=== PATIENT | female | born 1960 | race Caucasian/White ===

== ENCOUNTER → 2018-01-02 | Outpatient (CLI) | payer OTHER ==
[~2018-01-02] MED LIST: OXYC80TA16 PO; PRMUNK
--- NOTE | 2018-01-02 11:45 | Discharge Instructions ---
Discharge Instructions Procedure Procedure Date: Jan 02, 2018. Reason for visit: Right Masses/Core Vs Cyst. Discharge Discharge Date: Jan 02, 2018. Discharge Diagnosis: status post breast biopsies Instructions Activity Recommendations: Additional Limitations (see below) Return to School/Work: no limitations Recommended Home Diet: No Limitations Provider Instructions: ACTIVITY RECOMMENDATIONS: * No lifting, pushing, pulling or exercising the affected side for three days. RETURN TO SCHOOL/WORK: * You may return to work/school after the procedure, but do not perform any strenuous activities for 24 to 48 hours. MEDICATIONS: * Tylenol (two 325 mg) every four to six hours if needed for mild pain (if not allergic to Tylenol). DIET: * Resume previous diet. SPECIAL CARE INSTRUCTIONS: * Keep biopsy site dry for 24 hours. May shower after 24 hours, but do not soak (bathe) incision. * May remove Tegaderm (plastic patch) tomorrow AFTER showering. * Leave the steri-strips on for one week. Allow the steri-strips to fall off by themselves. If not off after one week, you may remove them. You may place a Bandaid crosswise over the strips, if desired. * Apply ice 10 minutes on and 10 minutes off as needed. * Wear a bra at bedtime to sleep more comfortably for 2-3 days. * Your referring physician should have the results after approximately 5 to 7 business days. * Call for unusual bleeding, fever, drainage, etc or if you have any questions call during normal business hours or after hours call Dr Benitez, . FOLLOW UP VISIT: Follow-up with Referring Physician as scheduled. Allergies Coded Allergies: No Known Allergies (Unverified Allergy, Mild, 12/18/05) Tammie León Recommendations: Call your doctor if: * Temperature above 101 degrees * Pain not relieved by pain medicine ordered * There is increased drainage or redness from any incision * You have any unanswered questions or concerns. Your Doctors Instructions noted above were prepared by provider Rosita Benitez. Patient Signature Section: Patient Instructions Signature Page Salina Cabrera Patient (or Guardian) Signature/Date: I have read and understand the instructions given to me by my caregivers. Caregiver/RN/Doctor Signature/Date: The above-named patient and/or guardian has received patient instructions on this date. + Original Patient Signature Page (only) stays with chart. Please make copy for patient.
--- NOTE | 2018-01-03 07:54 | MAMMOGRAPHY REPORT ---
ULTRASOUND GUIDED BIOPSY RIGHT BREAST: 01/02/2018 CLINICAL HISTORY: The patient presents from outside institution for biopsy of a palpable right 8:00 b reast mass. Preprocedural ultrasound was performed, which shows a lobulated irregular hypoechoic solid mass at th e site of the palpable lump in the right breast at approximately 8:00, 3 cm from the nipple, measurin g 1.7 x 1.0 x 1.4 cm. Linear hypoechoic abnormal tissue is seen extending approximately 1.3 cm from the mass towards the nipple. Additionally, multiple hypoechoic solid masses are also seen in the rig ht 8:00 breast, including a 6 x 4 x 8 mm mass in the right breast at 8:00, 7 cm from the nipple, a 6 x 5 mm hypoechoic mass at approximately 6-7 cm from the nipple, and a hypoechoic solid mass measuring 4 x 6 mm in the right breast at approximately 8:00, 4 cm from the nipple. The palpable dominant mas s is highly suspicious for malignancy and biopsy is recommended. Also recommend biopsy of 1 of the o ther hypoechoic solid masses, specifically the mass furthest from the dominant mass at approximately 7 cm from the nipple. Targeted ultrasound was also performed of the right axilla, which shows multip le mildly prominent right axillary lymph nodes, many of which do not have normal fatty deepa and the c ortices are thickened. Therefore, recommend biopsy of 1 of the axillary lymph nodes. PATIENT CONSENT: The procedure, risks and benefits were discussed with the patient and informed writt en consent was obtained. A timeout was performed immediately prior to the procedure. PROCEDURE DESCRIPTION: With ultrasound guidance, aseptic technique, and lidocaine as the local anesth etic (1% lidocaine to anesthetize the skin and 1% lidocaine with epinephrine to anesthetize the deepe r tissues), the dominant mass in the right 8:00 breast, 3 cm from the nipple (mass "A") sampled 4 katiana es with a 14-gauge Achieve biopsy needle. Immediately thereafter, with ultrasound guidance, aseptic technique, and lidocaine as the local anesthetic, a metallic localizer clip was placed centrally in the mass. Direct pressure was applied to the site immediately post procedure and hemostasis was achi eved. Postprocedure unilateral mammograms were performed to confirm placement of the clip in the exp ected location of the breast mass. The patient tolerated the procedure without complication. She wa s given wound care instructions. The specimens were sent to pathology for analysis. IMPRESSION: ULTRASOUND GUIDED BIOPSY 1. Preprocedural ultrasound demonstrates a dominant 1.7 cm mass corresponding with the palpable lump in the right breast at 8:00. Abnormal hypoechoic tissue is seen extending 1.3 cm from the mass towa rds the nipple, and multiple other smaller hypoechoic masses are seen within the right breast at 8:00 further from the nipple, concerning for satellite lesions. Abnormal right axillary lymph nodes are also seen. Recommend ultrasound-guided core needle biopsy of the dominant right 8:00 breast mass as well as 1 of the other smaller hypoechoic masses further from the nipple. Also recommend ultrasound- guided biopsy of 1 of the right axillary lymph nodes. 2. Ultrasound-guided core needle biopsy of the dominant mass in the right breast at 8:00 (mass "A"), with clip placement. The patient will receive pathology results from her referring provider. Rosita Benitez M.D. ah/:01/02/2018 11:59:21 Family Specialist: B[place], [facility]
--- NOTE | 2018-01-03 07:54 | MAMMOGRAPHY REPORT ---
ULTRASOUND GUIDED BIOPSY RIGHT BREAST: 01/02/2018 CLINICAL HISTORY: Multiple hypoechoic masses in the right 8:00 breast. PATIENT CONSENT: The procedure, risks and benefits were discussed with the patient and informed writt en consent was obtained. A timeout was performed immediately prior to the procedure. PROCEDURE DESCRIPTION: With ultrasound guidance, aseptic technique, and lidocaine as the local anesth etic (1% lidocaine to anesthetize the skin and 1% lidocaine with epinephrine to anesthetize the deepe r tissues), the mass in the right 8:00 breast, 7 cm from the nipple (mass "B") sampled 4 times with a 14-gauge Achieve biopsy needle. Immediately thereafter, with ultrasound guidance, aseptic techniqu e, and lidocaine as the local anesthetic, a metallic localizer clip (wing-shaped) was placed centrall y in the mass. Direct pressure was applied to the site immediately post procedure and hemostasis was achieved. Postprocedure unilateral mammograms were performed to confirm placement of the clip in th e expected location of the breast mass. The patient tolerated the procedure without complication. S he was given wound care instructions. The specimens were sent to pathology for analysis. IMPRESSION: ULTRASOUND GUIDED BIOPSY Ultrasound-guided core needle biopsy of the right 8:00 breast mass, 7 cm from the nipple (mass "B"). The patient will receive pathology results from her referring provider. Rosita Benitez M.D. /:01/02/2018 12:01:18 Manager Client: Bharati [place], [facility]
--- NOTE | 2018-01-03 07:54 | MAMMOGRAPHY REPORT ---
ULTRASOUND GUIDED BIOPSY RIGHT BREAST: 01/02/2018 CLINICAL HISTORY: Prominent right axillary lymph nodes. PATIENT CONSENT: The procedure, risks and benefits were discussed with the patient and informed writt en consent was obtained. A timeout was performed immediately prior to the procedure. PROCEDURE DESCRIPTION: With ultrasound guidance, aseptic technique, and lidocaine as the local anesth etic (1% lidocaine to anesthetize the skin and 1% lidocaine with epinephrine to anesthetize the deepe r tissues), 1 of the abnormal right axillary lymph nodes was sampled 4 times with an 18-gauge quick-c ore biopsy needle. Direct pressure was applied to the site immediately post procedure and hemostasis was achieved. Immediately thereafter, with ultrasound guidance, aseptic technique, and lidocaine as the local anesthetic, a metallic localizer clip was placed at the biopsy site, which was shown to be within and adjacent to the lymph node on postprocedural ultrasound. Direct pressure was applied to the site immediately post procedure and hemostasis was achieved. Postprocedure unilateral mammograms were performed to confirm clip placement. The patient tolerated the procedure without complication. She was given wound care instructions. The specimens were sent to pathology for analysis. COMPARISON: Comparison is made to exams dated: 01/02/2018 ultrasound biopsy and 01/02/2018 mammogram - [facility] [address]. IMPRESSION: ULTRASOUND GUIDED BIOPSY Ultrasound-guided core needle biopsy of one of the abnormal right axillary lymph nodes, with clip laila cement. The patient will receive pathology results from her referring provider. Rosita Benitez M.D. /:01/02/2018 12:03:38 Mixing Pan Tender: [place], [facility] [address]
--- NOTE | 2018-01-03 07:59 | MAMMOGRAPHY REPORT ---
UNILATERAL RIGHT DIGITAL DIAGNOSTIC MAMMOGRAM TOMOSYNTHESIS: 01/02/2018 CLINICAL HISTORY: Status post right breast and axillary biopsies. TECHNIQUE: Breast tomosynthesis in addition to standard 2D mammography was performed. Postprocedura l right CC and ML 2D and tomosynthesis images were obtained. COMPARISON: Comparison is made to exam dated: 01/02/2018 ultrasound biopsy - [facility]. BREAST COMPOSITION: The tissue of the right breast is heterogeneously dense, which may obscure small masses. FINDINGS: A new ribbon-shaped biopsy marker clip is seen at the site of the biopsy of the dominant ri ght 8:00 breast mass (mass "A"). A wing-shaped biopsy marker clip is seen at the site of the biopsy of the right 8:00 breast mass, 7 cm from the nipple (mass "B"). The 2 biopsy marker clips are locate d approximately 3.3 cm apart. No significant postbiopsy hematoma is seen. Another biopsy clip is se en within the right axilla on the ML view at the site of the axillary node biopsy. IMPRESSION: POST PROCEDURE IMAGING FOR MARKER PLACEMENT New biopsy marker clips status post right breast and axillary biopsies. Pathology results are pendin g. Approximately 10% of breast cancers are not detected with mammography. A negative mammographic report should not delay biopsy if a clinically suggestive mass is present. Rosita Benitez M.D. /:01/02/2018 12:05:40 Compliance Review Officer: Bharati Lake [facility] BI-RADS Code: Post Procedure Imaging For Marker Placement
== END | disposition home or self-care (01) ==
LOC: C.MAMM 10:38
PROVIDERS: ATTEND Physician Assistant
DX: C50.911 Malignant neoplasm of unspecified site of right female breast (principal); R59.0 Localized enlarged lymph nodes

== ENCOUNTER 2018-02-07 07:22 | Observation (INO) | payer OTHER ==
[2018-01-21 15:20] VITALS: BMI 24.0
--- NOTE | 2018-01-21 15:41 | PAT Medication Instructions ---
Service Date Jan 21, 2018. Current Home Medication List Bupropion (Wellbutrin), 25 MG PO QAM Clonazepam (Klonopin), 1 MG PO BID Fluoxetine (Prozac), 60 MG PO QAM Furosemide (Lasix), 20 MG PO QAM Levothyroxine Sodium (Levothyroxine Sodium), 1 TAB PO QAM Methocarbamol (Robaxin), 500 MG PO UD Omeprazole (Prilosec), 40 MG PO QAM Oxymorphone Hcl (Oxymorphone Hydrochloride), 1 TAB PO BID ["Roxicet" ], 10 MG PO UD PRN for Pain Medication Instructions For Your Scheduled Surgery - Hold the following medications the morning of surgery: Furosemide (Lasix), 20 MG PO QAM Methocarbamol (Robaxin), 500 MG PO UD - Take the following medications the morning of surgery with a sip of water: Bupropion (Wellbutrin), 25 MG PO QAM Clonazepam (Klonopin), 1 MG PO BID Fluoxetine (Prozac), 60 MG PO QAM Levothyroxine Sodium (Levothyroxine Sodium), 1 TAB PO QAM Omeprazole (Prilosec), 40 MG PO QAM Oxymorphone Hcl (Oxymorphone Hydrochloride), 1 TAB PO BID (if needed, can be taken up to four hours before surgery) ["Roxicet" ], 10 MG PO UD PRN for Pain (if needed, can be taken up to four hours before surgery) - Take the following medications as scheduled the night before surgery: Clonazepam (Klonopin), 1 MG PO BID Methocarbamol (Robaxin), 500 MG PO UD Oxymorphone Hcl (Oxymorphone Hydrochloride), 1 TAB PO BID ["Roxicet" ], 10 MG PO UD PRN for Pain (if needed) If you have any questions please call us at [phone] or [phone] or [phone]
[2018-01-21 16:22] LABS: BASO % 0.3 %; BASO ABS # 0.02 K/uL (0-0.2); EOS % 4.5 %; EOS ABS # 0.29 K/uL (0-0.5); HEMATOCRIT 37.8 % (37-47); HEMOGLOBIN 12.8 g/dL (12.0-16.0); IG# 0.01 K/uL (0.00-0.02); LYMPH % 25.4 %; LYMPH ABS # 1.65 K/uL (1.2-3.4); MEAN CELL VOLUME 88.1 fL (80-100); MEAN CORPUSCULAR HEMOGLOBIN 29.8 pg (25-34); MEAN CORPUSCULAR HGB CONC 33.9 g/dl (32-36); MEAN PLATELET VOLUME 11.5 fL (7.4-10.4); MONO % 7.6 %; MONO ABS # 0.49 K/uL (0.11-0.59); NEUT ABS # 4.03 K/uL (1.4-6.5); PLATELET COUNT 211 K/uL (130-400); RED CELL DISTRIBUTION WIDTH CV 13.6 % (11.5-14.5); RED CELL DISTRIBUTION WIDTH SD 44.5 fL (36.4-46.3); WHITE BLOOD COUNT 6.49 K/uL (4.8-10.8)
[2018-01-21 16:30] LABS: CREATININE 0.99 mg/dl (0.60-1.20); POTASSIUM 3.9 mmol/L (3.5-5.1)
[~2018-02-07] VITALS: Ht 152.4 cm; Wt 56.6 kg
[2018-02-07] VITALS (8 sets, daily range): BP systolic 105–127; BP diastolic 72–80; PULSE 68–103; TEMP 36.6–37; O2SAT 91–97; Ht 152.4 cm; Wt 56.6 kg
[~2018-02-07 07:22] MED LIST changes: +BUPR75TA20 PO; +CEFAZOLIN 2000MG IV PUSH 15 ML IV SCH; +CLON1TAB3 PO; +FLUO20CA35 PO; +FURO-85 PO; +LACTATED RINGER'S 1000ML 1,000 ML IV SCH; +LEVO150T9 PO; +METH500T37 PO; -OXYC80TA16 PO; +OXYM1TAB PO; +PRLSR20 PO; -PRMUNK; +[UNRECOGNIZED DRUG - REMARK] PO
[2018-02-07] MEDS ORDERED: VALA500T60 PO (07:53)
--- NOTE | 2018-02-07 09:32 | DIAGNOSTIC IMAGING REPORT ---
LYMPHOSCINTIGRAPHY CLINICAL HISTORY: Right sided breast cancer. PROCEDURE: Using standard sterile technique, 4 intradermal and one deep injection of 0.5 mCi of Lymphoseek was placed in the right breast. The patient tolerated the procedure well. There were no immediate complications. The patient was subsequently transported to the surgical suite. No imaging was obtained at the referring physician's request. IMPRESSION: Injection of 0.5 mCi of Lymphoseek in the right breast. Electronically signed by: Chandler Olson M.D. 02/07/2018 9:30 AM Dictated Date/Time: 02/07/2018 9:30 AM
[2018-02-07] MEDS ORDERED: EpHEDrine SULFATE INJ 50 MG/ML AMP IV PRN (09:45)
[2018-02-07] MEDS ORDERED: ONDANSETRON INJ 2 MG/ML 2 ML VIAL IV PRN ×2 (09:45→12:30)
[2018-02-07] MEDS ORDERED: LABETALOL HCL IV 5 MG/ML 20ML IV PRN (09:45)
[2018-02-07] MEDS ORDERED: PHENYLEPHRINE 100MCG/ML 5ML SYR IV PRN (09:45)
[2018-02-07] MEDS ORDERED: ATROPINE SULFATE 0.1 MG/ML 5ML SYR IV PRN (09:45)
[2018-02-07] MEDS ORDERED: PROMETHAZINE HCL INJ 12.5 MG in SODIUM CHLORIDE 0.9% 50ML 50 ML IV PRN (09:45)
[2018-02-07] MEDS ORDERED: MIDAZOLAM HCL 1 MG/ML 2ML VIAL ONE (10:05)
[2018-02-07] MEDS ORDERED: FENTANYL CITRATE INJ 50 MCG/1 ML 2 ML VIAL ONE ×2 (10:05→11:08)
--- NOTE | 2018-02-07 10:14 | History & Physical Bridge Note ---
H&P Re-Evaluation Bridge Note: I have examined the patient, reviewed the History & Physical and in the interval since the performance of the History & Physical I have noted the following changes of clinical significance: No changes noted
[2018-02-07] MEDS ORDERED: BUPIVACAINE 0.5 % 5 MG/1 ML MPF 30ML VIAL ONE (10:52)
[2018-02-07] MEDS ORDERED: EpINEphrine INJ 1MG/ML AMP 1 MG/ML AMP ONE (10:52)
[2018-02-07] MEDS ORDERED: HYDROmorphone INJ 2 MG/ML SYR/VIAL ONE (11:08)
[2018-02-07] MEDS ORDERED: PROPOFOL IV EMULSION 10 MG/ML 20 ML VIAL ONE (11:35)
[2018-02-07] MEDS ORDERED: LIDOCAINE HCL 2% 2 ML VIAL (20MG/ML) ONE (11:35)
[2018-02-07] MEDS ORDERED: SUCCINYLCHOLINE 100MG/5ML SYR IV ONE (11:35)
[2018-02-07] MEDS ORDERED: EpHEDrine SULFATE INJ 50 MG/ML AMP ONE (11:35)
[2018-02-07] MEDS ORDERED: ONDANSETRON INJ 2 MG/ML 2 ML VIAL ONE (11:35)
[2018-02-07] MEDS ORDERED: DEXAMETHASONE SOD INJ 4 MG/ML VIAL ONE (11:35)
--- NOTE | 2018-02-07 12:08 | [facility] Post Operative Brief Note ---
Immediate Operative Summary Operative Date February 07, 2018. Pre-Operative Diagnosis Right breast cancer Post-Operative Diagnosis Same as preop Procedure(s) Performed Right total mastectomy with sentinel lymph node biopsy Surgeon Dr. Ernandez Monogram Maker Surgeon(s) Henry Lala PA-C Estimated Blood Loss 40 cc Findings Consistent with Post-Op Diagnosis Specimens A: right breast mastectomy - 1 long stitch lateral, 2 short stitches superior, skin-anterior (sent to lab at 1137) B: additional axillary node -sent to lab at 1137 C: sentinel lymph node #1 Anesthesia Type General Complication(s) none
--- NOTE | 2018-02-07 12:33 | [facility] Operative Report ---
Operative Report Operative Date February 07, 2018. Pre-Operative Diagnosis Right breast cancer Post-Operative Diagnosis Same as preop Procedure(s) Performed Right total mastectomy with sentinel lymph node biopsy Surgeon Dr. Ernandez English As A Second Language Teacher Surgeon(s) Henry Lala PA-C Estimated Blood Loss 40 cc Specimens A: right breast mastectomy - 1 long stitch lateral, 2 short stitches superior, skin-anterior (sent to lab at 1137) B: additional axillary node -sent to lab at 1137 C: sentinel lymph node #1 Anesthesia Type General Complication(s) none Description of Procedure Prior to coming to the operating room the patient had been to nuclear medicine and was injected with radionucleotide for the sentinel node. After that she was brought to the operating room and placed in supine position with the right arm extended. After successful placement of the laryngeal mask airway the upper chest arm and axilla were all sterilely prepped and draped in usual fashion. I began by creating an elliptical incision around the breast to the axilla using a 15 blade scalpel. We created skin flaps superiorly to the clavicle and inferiorly to the inframammary fold using electrocautery. We carried the incision the whole way down to the pectoralis fascia. I did not take any pectoralis fascia. We continue use traction and countertraction and cautery to remove the breast from the chest wall. I controlled any bleeding with electrocautery and clamp and tie technique. We continued this the whole way into the axilla to include the axillary tail. Eventually I had the entire breast removed. We marked it such that one long stitch was lateral margin 2 short stitches were the superior margin and the skin marked the anterior margin. We thoroughly irrigated all the raw surfaces and obtained adequate hemostasis. We then used the neoprobe device to identify a sentinel lymph node. I was able to remove this using electrocautery. We did check it ex vivo and it was in fact a "hot" node. It was sent as sentinel lymph node #1. There was a second deep sentinel lymph node however it was very close to a large nerve bundle. I felt that the risk reward for going after this node attached to the nerve bundle did not warrant risking nerve injury. There was a second clinical node with a previous clip applied to it and I removed this and sent it as an extra lymph node. There were no other "hot" nodes noted anywhere in the axilla. At this point I thoroughly irrigated all the raw surfaces a final time. There was adequate hemostasis. A 10 flat Robetro-Devi drain was brought in through a separate stab incision and placed into the wound itself. It was secured to the skin using 2-0 nylon. Blair powder was placed on all the raw surfaces to help prevent seroma and hematoma formation. Wound was then closed in multiple layers using 0 Vicryl for deep layers 2-0 Vicryl for mid layers and 3-0 Monocryl for skin. Benzoin and Steri-Strips were applied. A sterile dressing was applied. The patient was awakened extubated and transferred to recovery in stable condition. My physician assistant guest services manager assisted throughout the case. He helped with retraction. He helped with control of any bleeding points. He also helped with wound closure and dressing placement. I attest to the content of the Intraoperative Record and any orders documented therein. Any exceptions are noted below.
[2018-02-07] MEDS: FENTANYL CITRATE INJ 50 MCG/1 ML 2 ML VIAL IV PRN ×3 (12:39→12:53)
[2018-02-07] MEDS: HYDROmorphone INJ 0.5 MG/0.5 ML SYR IV PRN ×7 (13:05→23:22)
--- NOTE | 2018-02-07 13:06 | Anesthesiology Progress Note ---
Anesthesia Post Op Note Date & Time February 07, 2018 at 13:05 Vital Signs Pain Intensity: 8.0 Vital Signs Past 12 Hours Date Time Temp Pulse Resp B/P (MAP) Pulse Ox O2 Delivery O2 Flow Rate FiO2 02/07/18 12:59 85 15 02/07/18 12:59 84 15 89 02/07/18 12:59 85 15 02/07/18 12:59 84 15 89 02/07/18 12:56 124/85 02/07/18 12:56 124/85 02/07/18 12:54 80 21 02/07/18 12:54 80 21 02/07/18 12:54 80 21 98 02/07/18 12:54 80 21 98 02/07/18 12:51 126/87 02/07/18 12:51 126/87 02/07/18 12:49 84 14 99 02/07/18 12:49 83 14 02/07/18 12:49 83 14 02/07/18 12:49 84 14 99 02/07/18 12:46 137/88 02/07/18 12:46 137/88 02/07/18 12:44 84 16 99 02/07/18 12:44 84 16 99 02/07/18 12:44 84 16 02/07/18 12:44 84 16 02/07/18 12:41 122/83 02/07/18 12:41 122/83 02/07/18 12:39 84 13 99 02/07/18 12:39 84 13 99 02/07/18 12:39 83 13 02/07/18 12:39 83 13 02/07/18 12:36 134/88 02/07/18 12:36 134/88 02/07/18 12:34 85 13 02/07/18 12:34 85 13 98 02/07/18 12:34 85 13 02/07/18 12:34 85 13 98 02/07/18 12:32 131/91 02/07/18 12:32 131/91 02/07/18 12:31 137/104 02/07/18 12:31 137/104 02/07/18 12:30 36.6 86 21 131/91 98 Oxymask 8 02/07/18 12:29 17 02/07/18 08:39 36.8 68 20 114/79 (91) 96 Room Air Notes Mental Status: alert / awake / arousable, participated in evaluation Pt Amnestic to Procedure: Yes Nausea / Vomiting: adequately controlled Pain: adequately controlled Airway Patency, RR, SpO2: stable & adequate BP & HR: stable & adequate Hydration State: stable & adequate Anesthetic Complications: no major complications apparent
[2018-02-07] MEDS ORDERED: IV FLUIDS COMPLETED PRN (13:15)
[2018-02-07] MEDS ORDERED: NURSING VERBAL MED ORDER ONE (15:30)
[2018-02-07] MEDS: LACTATED RINGER'S 1000ML 1,000 ML IV SCH (15:38)
[2018-02-07] MEDS: OXYCODONE HCL 10 MG TABCR (OXYCONTIN) PO SCH (15:51)
[2018-02-07] MEDS: NICOTINE 21 MG/24 HR TDSY TD SCH (17:40)
[2018-02-07] MEDS: CLONAZEPAM 1 MG TAB PO SCH (20:42)
[2018-02-08] MEDS: HYDROmorphone INJ 0.5 MG/0.5 ML SYR IV PRN ×2 (00:22→06:26)
[2018-02-08] MEDS ORDERED: HYDROmorphone INJ 2 MG/ML SYR/VIAL IV STA (01:15)
[2018-02-08] MEDS: ACETAMINOPHEN IV 1,000 MG in EMPTY BAG 0 ML IV SCH ×2 (01:36→09:21)
[2018-02-08] MEDS: OXYCODONE HCL 10 MG TABCR (OXYCONTIN) PO SCH ×2 (03:08→13:02)
[2018-02-08] MEDS: LACTATED RINGER'S 1000ML 1,000 ML IV SCH (03:11)
[2018-02-08 03:13] VITALS: BP 91/63; PULSE 74; TEMP 36.6; O2SAT 93
[2018-02-08] MEDS ORDERED: LEVOTHYROXINE 150 MCG TAB PO SCH (06:00)
[2018-02-08 07:00] VITALS: BP 120/75; PULSE 74; TEMP 36.5; O2SAT 97
--- NOTE | 2018-02-08 07:18 | Surgery Progress Note ---
Surgery Progress Note Date of Service February 08, 2018. Subjective Post OP Day: 1 + feeling well, + pain controlled, + diet (Regular diet. Reports she has only been having liquids (coffee, fior carlitos, etc) thus far.), No bowel movement, No nausea, No vomiting patient did have some increased pain overnight. IV tylenol added along with 1mg dilaudid IV push last night. Objective Vital Signs: Date Time Temp Pulse Resp B/P (MAP) Pulse Ox O2 Delivery O2 Flow Rate FiO2 02/08/18 07:00 36.5 74 16 120/75 (90) 97 Room Air 02/08/18 03:13 36.6 74 17 91/63 (72) 93 Room Air 02/07/18 23:15 Room Air 02/07/18 22:59 36.7 86 17 105/72 (83) 94 Room Air 02/07/18 20:26 36.8 85 20 127/75 (92) 93 Room Air 02/07/18 17:03 36.8 93 16 108/72 (84) 91 Room Air 02/07/18 16:02 36.6 103 16 119/80 (93) 97 Nasal Cannula 2.0 02/07/18 15:45 Nasal Cannula 2.0 02/07/18 14:58 37.0 86 15 107/72 (84) 97 Nasal Cannula 2.0 02/07/18 14:30 36.9 90 16 110/74 (86) 96 Nasal Cannula 2.0 02/07/18 14:00 97 Nasal Cannula 2.0 02/07/18 14:00 36.9 88 16 118/80 (93) 97 Nasal Cannula 2.0 02/07/18 14:00 97 Nasal Cannula 2.0 02/07/18 13:26 112/76 02/07/18 13:25 37.2 79 16 112/76 94 Nasal Cannula 2 02/07/18 13:22 79 13 95 02/07/18 13:22 80 13 02/07/18 13:21 100/77 02/07/18 13:17 78 14 95 02/07/18 13:17 79 14 02/07/18 13:16 111/75 02/07/18 13:12 77 12 02/07/18 13:12 78 12 95 02/07/18 13:11 112/86 5/17/18 13:10 84 13 94 5/17/18 13:10 84 13 517/18 13:06 117/70 5/17/18 13:05 80 25 95 5/17/18 13:05 80 25 5/17/18 13:01 116/86 517/18 13:00 81 15 5/17/18 13:00 82 15 89 517/18 12:59 85 15 5/17/18 12:59 84 15 89 517/18 12:59 85 15 517/18 12:59 84 15 89 517/18 12:56 124/85 517/18 12:56 124/85 517/18 12:54 80 21 5/17/18 12:54 80 21 517/18 12:54 80 21 98 17/18 12:54 80 21 98 17/18 12:51 126/87 517/18 12:51 126/87 517/18 12:49 84 14 99 517/18 12:49 83 14 17/18 12:49 83 14 17/18 12:49 84 14 99 17/18 12:46 137/88 517/18 12:46 137/88 517/18 12:44 84 16 99 5/17/18 12:44 84 16 99 5/17/18 12:44 84 16 5/17/18 12:44 84 16 5/17/18 12:41 122/83 5/17/18 12:41 122/83 517/18 12:39 84 13 99 517/18 12:39 84 13 99 517/18 12:39 83 13 5/17/18 12:39 83 13 517/18 12:36 134/88 517/18 12:36 134/88 517/18 12:34 85 13 5/17/18 12:34 85 13 98 5/17/18 12:34 85 13 517/18 12:34 85 13 98 5/17/18 12:32 131/91 517/18 12:32 131/91 517/18 12:31 137/104 517/18 12:31 137/104 517/18 12:30 36.6 86 21 131/91 98 Oxymask 8 5/17/18 12:29 17 02/07/18 08:39 36.8 68 20 114/79 (91) 96 Room Air Physical Exam: HERON drainage (55ml/45ml, serosang) General Appearance: WD/WN, no apparent distress Head: normocephalic, atraumatic Respiratory/Chest: no respiratory distress, no accessory muscle use, + pertinent finding (Incisional tenderness with some pain wrapping around to her back.) Incision(s): clean, dry, intact Laboratory Results: Results Past 24 Hours Test 02/08/18 05:51 Range/Units Assessment & Plan POD #1 s/p right total mastectomy w/ sentinel lymph node bx Some increased pain overnight, IV tylenol added along with 1mg dilaudid IV push, pain controlled at this time. Urinating without issue. Regular diet - only had liquids thus far but tolerating, no N/V. ADAT. Continue current pain management, keep HERON for now. possible d/c today depending on how she does with diet and pain control. Will discuss findings with Dr. Ernandez. Please contact with questions or concerns.
--- NOTE | 2018-02-08 07:58 | Discharge Instructions ---
Discharge Instructions Date of Service February 08, 2018. Admission Reason for Admission: Right Breast Cancer W/Nm Inj Discharge Discharge Diagnosis / Problem: Right breast Cancer W/Nm Inj Discharge Goals Goal(s): Decrease discomfort, Improve function Activity Recommendations Activity Limitations: as noted below Lifting Limitations: no more than 10 pounds, until after follow-up appointment Exercise/Sports Limitations: until after follow-up appointment May Resume Sexual Activity: after follow-up appointment Shower/Bathe: tomorrow Driving or Machine Use: resume 3 days after discharge (Please do not drive while using narcotic pain medication.) . Instructions / Follow-Up Instructions / Follow-Up You have been prescribed Ransom to take as needed for pain relief. Please use as directed. Follow-up with Dr. Ernandez in 1-2 weeks. Please contact our office at [phone] to schedule an appointment if you have not done so already. Please contact our office with any further questions or concerns. [facility]. [address] [place] [address]. Current Hospital Diet Patient's current hospital diet: Regular Diet Discharge Diet Recommended Diet: Regular Diet Procedures Procedures Performed: Right total mastectomy with sentinel lymph node biopsy Pending Studies Studies pending at discharge: yes List of pending studies: pathology Medical Emergencies . Who to Call and When: Medical Emergencies: If at any time you feel your situation is an emergency, please call 911 immediately. . Non-Emergent Contact Non-Emergency issues call your: Primary Care Provider, Surgeon Call Non-Emergent contact if: you have a fever, temperature is above 101.5, your pain is not controlled, your pain is worsening, wound has increased drainage, wound has increased redness . "Provider Documentation" section prepared by Marcell Romo. . [place] Drug Monitoring Program Search Results: patient reviewed within database, no issues identified
--- NOTE | 2018-02-08 07:58 | Anesthesiology Progress Note ---
Anesthesia Post Op Note Date & Time February 08, 2018 at 07:58 Vital Signs Vital Signs Past 12 Hours Date Time Temp Pulse Resp B/P (MAP) Pulse Ox O2 Delivery O2 Flow Rate FiO2 02/08/18 07:00 36.5 74 16 120/75 (90) 97 Room Air 02/08/18 03:13 36.6 74 17 91/63 (72) 93 Room Air 02/07/18 23:15 Room Air 02/07/18 22:59 36.7 86 17 105/72 (83) 94 Room Air 02/07/18 20:26 36.8 85 20 127/75 (92) 93 Room Air Notes Mental Status: alert / awake / arousable, participated in evaluation Pt Amnestic to Procedure: Yes Nausea / Vomiting: adequately controlled Pain: adequately controlled Airway Patency, RR, SpO2: stable & adequate BP & HR: stable & adequate Hydration State: stable & adequate Anesthetic Complications: no major complications apparent
[2018-02-08] MEDS ORDERED: HYDR-5688 PO (07:59)
[2018-02-08] MEDS ORDERED: FUROSEMIDE 20 MG TAB PO SCH (09:00)
[2018-02-08] MEDS ORDERED: PANTOprazole SOD 40 MG TAB PO SCH (09:00)
[2018-02-08] MEDS ORDERED: FLUOXETINE HCL 20 MG CAP PO SCH (09:00)
[2018-02-08] MEDS: CLONAZEPAM 1 MG TAB PO SCH (09:19)
[2018-02-08] MEDS: NICOTINE 21 MG/24 HR TDSY TD SCH (09:21)
[2018-02-08] MEDS ORDERED: OXYSR10 PO (09:33)
[2018-02-08] MEDS ORDERED: OXYCODONE HCL IR 5 MG TAB (IMMEDIATE RELEASE) PO STA (11:01)
[2018-02-08] MEDS ORDERED: OXYCODONE HCL IR 5 MG TAB (IMMEDIATE RELEASE) ONE (11:05)
[2018-02-08 11:44] VITALS: BP 120/75; PULSE 74; TEMP 36.5; O2SAT 97
--- NOTE | 2018-02-12 11:37 | DISCHARGE SUMMARY ---
PRIMARY DISCHARGE DIAGNOSIS: Right breast cancer. SECONDARY DISCHARGE DIAGNOSES: 1. Anxiety and depression. 2. Arthritis. 3. Chronic back pain. 4. GERD. 5. Hypothyroid. PROCEDURE PERFORMED: Right total mastectomy with sentinel lymph node biopsy. HOSPITAL COURSE: The patient is a 57-year-old female with right breast cancer brought in through same day and taken to the operating room for mastectomy with sentinel lymph node biopsy. The procedure was well tolerated. She was transferred to the surgical floor, kept for overnight observation. On postoperative day 1, she was able to tolerate an advancing diet. She was able to transition from IV to oral analgesics. HERON drainage was 45 mL overnight. There was no evidence of hematoma. She was stable for discharge on postoperative day 1. DISCHARGE INSTRUCTIONS: Discharge home. Follow up with Dr. Ernandez in 1 week for removal of the drain. She will have home health. DISCHARGE MEDICATIONS: OxyContin 10 mg p.o. q. 12 hours, ibuprofen 600-800 mg 3 times a day as needed. Resume home medications, Wellbutrin 75 mg daily, Klonopin 1 mg b.i.d., Prozac 60 mg daily, Lasix 20 mg daily, levothyroxine 150 mcg daily, Robaxin 500 mg as needed, Prilosec 40 mg daily, and Valtrex 1 tablet t.i.d. as needed.
== END 2018-02-08 13:12 | disposition home or self-care (01) ==
LOC: C.ACU 07:22 → UNDOADMOB 12:23 → C.MSN 12:23 → ENRESERV 13:09
PROVIDERS: ADMIT Surgery; ATTEND Surgery
DX: Z17.0 Estrogen receptor positive status [ER+] (principal); K21.9 Gastro-esophageal reflux disease without esophagitis; M19.90 Unspecified osteoarthritis, unspecified site; E03.9 Hypothyroidism, unspecified; F32.9 Major depressive disorder, single episode, unspecified; G62.9 Polyneuropathy, unspecified; M41.9 Scoliosis, unspecified; F17.210 Nicotine dependence, cigarettes, uncomplicated; Z90.49 Acquired absence of other specified parts of digestive tract; Z90.710 Acquired absence of both cervix and uterus; Z83.3 Family history of diabetes mellitus; Z80.41 Family history of malignant neoplasm of ovary

== ENCOUNTER 2024-07-02 16:37 | Inpatient (IN) ==
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
[2024-07-02] MEDS: MoRPHine SULFATE 4 MG/ML 1 ML CARP\\VIAL IV STA (17:46)
[2024-07-02] MEDS: ACETAMINOPHEN 1,000 MG/100 ML VIAL IV STA (17:46)
[2024-07-02 18:36] VITALS: O2SAT 96
[2024-07-02] MEDS ORDERED: ALBUTEROL 0.083% NEBU SOLN 3 ML VIAL INH PRN (18:37)
--- NOTE | 2024-07-02 18:58 | History & Physical Report ---
Date of Service July 02, 2024 Assessment & Plan (1) Hypothyroidism: (2) Thyroid cancer: (3) Iron deficiency anemia: (4) GERD (gastroesophageal reflux disease): (5) Anxiety: (6) Depression: (7) Adenocarcinoma of lower lobe of right lung: Plan Assessment and plan: Metastatic lung cancer Severe chronic pain Previously on chemo in January 2024, transition to comfort measures only about 1 week ago Reports inadequate pain management at home on oral morphine Continue home MS Contin, IV morphine for breakthrough pain and oxycodone for moderate pain Palliative consulted, await recommendations Anxiety/depression: Continue Effexor/Ativan Hypothyroidism: Continue levothyroxine GERD: Continue pantoprazole/Pepcid Patient is a DNR/DNIcurrently on hospice and would like comfort measures only DVT prophylaxis: Deferred with comfort measures A total of 60 minutes was spent on chart review/reviewing laboratory data/diagnostic testing/facilitating plan of care/discussion with consultants History of Present Illness Chief Complaint: Uncontrolled pain Primary Care Provider: Wendie Ordoñez MD The patient is a 63-year-old female with a past medical history anxiety, depression, insomnia, and metastatic lung cancer who recently transitioned to comfort measures only about a week ago Who reports to the ED on 07/02/2024 with complaints of severe back pain. The patient is currently on hospice and reports that she called the hospice nurse and told her that her pain is not being controlled. She has been taking oral morphine and oxycodone for breakthrough pain. The hospice nurse and director her to call EMS to be taken to the hospital for better pain management. She received 4 mg of IV morphine in the ED and said that this helped a little bit. On exam, she reports severe pain with any type of movement. She reports generalized bone pain constantly. She denies any chest pain or shortness of breath. She denies any recent nausea/vomiting. She does report some indigestion and is requesting Pepcid. Otherwise denies any other complaints. The patient will be admitted for further pain management. Allergies Allergy/AdvReac Type Severity Reaction Status Date / Time sulfamethoxazole AdvReac hand Verified 01/28/24 11:13 [From Bactrim] swelling trimethoprim [From Bactrim] AdvReac hand Verified 01/28/24 11:13 swelling Home Medications Medication Instructions Recorded Confirmed Type albuterol sulfate 2.5 mg/3 mL 2.5 mg inhalation Q4H PRN 10/17/23 07/02/24 History (0.083 %) solution for nebulization Shortness Of Breath cyclobenzaprine 10 mg tablet 10 mg PO HS PRN Muscle Spasm 10/17/23 07/02/24 History famotidine 20 mg tablet (Pepcid) 20 mg PO HS 10/17/23 07/02/24 History gabapentin 300 mg capsule 300 mg PO AMHS 10/17/23 07/02/24 History levothyroxine 137 mcg capsule 137 mcg PO DAILY 10/17/23 07/02/24 History pantoprazole 40 mg tablet,delayed 40 mg PO DAILYBB 10/17/23 07/02/24 History release rizatriptan 5 mg tablet 5 mg PO Q2H PRN Migraine Headache 10/17/23 07/02/24 History lorazepam 1 mg tablet 1 mg PO DAILY PRN Anxiety 12/26/23 07/02/24 History hydroxyzine HCl 50 mg tablet 50 mg PO TID PRN Anxiety 07/02/24 07/02/24 History morphine 15 mg tablet,extended 15 mg PO Q12 07/02/24 07/02/24 History release ondansetron HCl 8 mg tablet 8 mg PO Q8 PRN Nausea 07/02/24 07/02/24 History oxycodone 10 mg tablet 10 mg PO .Q 4-6 HR PRN Pain 07/02/24 07/02/24 History venlafaxine 75 mg capsule,extended 75 mg PO DAILY 07/02/24 07/02/24 History release 24 hr (Effexor XR) Past Med/Surg History Problem List Headache Blurred vision Adenocarcinoma of lower lobe of right lung (Chronic 05/02/23) Right lower lobe pulmonary nodule Malignant neoplasm of lung Biopsy on 04/10/23 History of bronchoscopy 04/10/23 Medical History Thyroid cancer Migraines Lumbar stenosis Hypothyroidism Hyperlipidemia Arthritis Scoliosis Iron deficiency anemia GERD (gastroesophageal reflux disease) Blindness of right eye CVA (cerebral vascular accident) Anxiety Depression Degenerative disc disease, lumbar Chronic low back pain Breast cancer, right Chronic kidney disease Vitreous degeneration Glaucoma Central corneal ulcer Surgical History 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 Mother No problems noted. Brother No problems noted. Brother No problems noted. Brother No problems noted. Sister No problems noted. Son No problems noted. Grandfather (Maternal) Colorectal cancer Grandmother (Paternal) Colorectal cancer tumor in stomache Social History Smoking Status: Current every day smoker Tobacco Type: Cigarettes Cigarettes Per Day: 1 pack per day, patient reports she is working on cessation; Second Hand Exposure: No; Do You Dip or Chew Tobacco: No; Hx Alcohol Use: No Hx Substance Use: No Preferred Language: Lithuanian Communication Ability: Effective Visual Impairment: Limited Hearing Ability: Normal Salesforce Business Analyst Required: No Beliefs That Will Affect Care: None Current Living Situation: Alone How many Children do You have: 1 Feels Safe at Home: Yes Childhood Exposure to Second-Hand Smoke: No Diet: regular during the past year weight has: decreased > 10 lbs Assistive Devices: Cane, Denture - Upper and Glasses Review of Systems Review of Systems: All systems reviewed & are unremarkable except as noted in Subjective Physical Exam Constitutional: WD/WN, vitals as above + ill appearing and + lethargic Eyes: PERRL, conjunctivae normal, anicteric sclerae ENMT: external ear and nose normal, oropharynx normal Neck: trachea midline, no thyromegaly Respiratory: normal respiratory effort, lungs clear to auscultation (Rales in bilateral lobes) Cardiovascular: RRR, no murmur, no edema Gastrointestinal (Abdomen): normal bowel sounds, soft, nontender, no hepatosplenomegaly Musculoskeletal: no cyanosis or clubbing, extremities motor strength 5/5 Skin: no rashes, warm and dry (Scattered bruising) Neurologic: PERRL, EOMI, accommodation nl, no face palsy, no dysarthria Psychiatric: A+Ox3, euthymic affect Lymphatic: no cervical or axillary lymphadenopathy Results & Data Results & Data Vital Signs (Past 12 Hours) Vital Signs Temp Pulse Pulse Resp BP BP Pulse Ox 07/02/24 17:16 71 20 96 07/02/24 17:14 108 H 07/02/24 17:00 36.6 C 113 H 20 115/77 98 07/02/24 17:00 36.6 C 113 H 20 115/77 98 O2 Del Method 07/02/24 17:16 Room Air 07/02/24 17:14 07/02/24 17:00 Room Air 07/02/24 17:00 Room Air Code Status & VTE Plan VTE Prophylaxis Plan VTE Prophylaxis will be ordered: No Supervising Physician Co-Signing Physician Notes Patient is a 63-year-old female with past medical history of metastatic lung cancer, anxiety, depression and other medical problems who is currently on hospice presents with history of worsening back pain. She was unable to manage her pain at home and so came to ED for further evaluation. Patient prefers to continue comfort medications and admits to continue hospice services. Please review HPI for complete details of presentation. On exam patient is thin, frail, ill-appearing, lethargic, normocephalic atraumatic, EOMI, decreased breath sounds, clear to auscultation, S1-S2, no murmur, trace pedal edema, abdomen soft, nontender, normal bowel sounds, alert, awake, oriented, grossly no focal deficits. Patient is being managed for generalized pain secondary to metastatic disease. Continue home medications, IV morphine to help with pain control. Palliative care consulted. DNI DNR. I personally interviewed and ex amined at bedside. Patient's care is coordinated with Willian VERMA. I have reviewed the advanced practitioner's documentation, and I agree with plan of care. Please refer to the documentation above for details of patient's presentation and for discussion of other issues. I spent a total [id number] coordinating, documenting, and providing care for this patient excluding time spent in the performance of separately billed services.
[2024-07-02 19:39] VITALS: BP 112/73; PULSE 90; RESP 16; TEMP 98.7
[2024-07-02] MEDS: FAMOTIDINE 20 MG TAB PO ONE (19:42)
[2024-07-02] MEDS ORDERED: ONDANSETRON INJ 2 MG/ML 2 ML VIAL IV PRN (20:38)
[2024-07-02] MEDS: oxyCODONE HCL IR 5 MG TAB (IMMEDIATE RELEASE) PO PRN (21:51)
[2024-07-02] MEDS: FAMOTIDINE 20 MG TAB PO SCH (22:13)
[2024-07-02] MEDS: MoRPHine SULFATE 4 MG/ML 1 ML CARP\\VIAL IV PRN (23:49)
[2024-07-03] MEDS: LEVOTHYROXINE SODIUM 137 MCG TABLET PO SCH (05:45)
[2024-07-03] MEDS: PANTOprazole 40 MG TAB PO SCH (05:45)
[2024-07-03] MEDS: VENLAFAXINE HCL XR 75 MG CAPXR PO SCH (07:23)
[2024-07-03] MEDS: LORazepam 2 MG/1 ML VIAL IV PRN (07:36)
--- OUTSIDE RECORDS SUMMARY | 2024-07-03 12:26 | External Medical Summary | Summary of Care ---
Author Name Unknown Organization [facility] Address [address] [place] [address] Phone [phone] Care Team Providers Care Carriage Operator Name Role Phone Wendie Ordoñez MD Primary Care Provide r Reason for Visit * Reason Onset Date Comments After Hours Call 06/20/2024 Encounter Details Date Type Department Care Team (Late st Contact Info) Description 06/20/2024 Telephone [facility] [address] [place] [address] Michelle Ellis MD [address] [place] [address] After Hours Call Allergies Active Allergy Reactions Criticality Noted Date Comments Sulfamethoxazole-Trimethoprim 2021 documented as of this encounter (statuses as of 06/20/2024) Medications Medication Sig Dispensed Refills Start Date End Date Status Aspirin EC 81 MG Oral Tablet Delayed ReleaseIndications:H istory of CVA (cerebrovascular accident) Take by mouth 1 Tablet in the morning. 100 Tablet 3 03/31/2022 Active Atorvastatin Calcium 40 MG Oral Tablet (Lipitor)Indications :Dyslipidemia, goal LDL below 130 TAKE ONE TABLET BY MOUTH EVERY MORNING 90 Tablet 1 03/30/2023 Active Additional Information Patient not taking.Reported on 06/06/2023 oxyCODONE HCl 5 MG Oral Tablet Abuse-Deterrent Take 5 mg by mouth every 4 hours as needed for Pain, Severe. Active Furosemide 20 MG Oral Tablet (Lasix)Indications:L eg swelling Take 1 Tablet by mouth daily as needed (leg swelling). 30 Tablet 2 08/27/2023 Active FLUoxetine HCl 20 MG Oral Capsule (PROzac)Indications: Anxiety,Current mild episode of major depressive disorder without prior episode (HCC) Take 1 Capsule by mouth in the morning. 90 Capsule 2 11/21/2023 Active Meloxicam 7.5 MG Oral Tablet (Mobic)Indications:C hronic bilateral low back pain without sciatica TAKE ONE TABLET BY MOUTH IN THE MORNING FOR PAIN 30 Tablet 11 02/01/2024 Active hydrOXYzine HCl 50 MG Oral TabletIndications:An xiety Take 1 Tablet by mouth 3 times a day as needed for Anxiety. 40 Tablet 1 02/26/2024 Active Rizatriptan Benzoate 5 MG Oral TabletIndications:Mi graine variant Take 1 Tablet by mouth as needed for Migraine. May repeat in 2 hours if needed. Maximum 30mg in 24 hours 10 Tablet 3 02/28/2024 Active Famotidine 20 MG Oral Tablet (Pepcid)Indications: Gastroesophageal reflux disease with esophagitis without hemorrhage TAKE ONE TABLET BY MOUTH AT BEDTIME 90 Tablet 1 03/27/2024 Active Cyclobenzaprine HCl 10 MG Oral Tablet (Flexeril)Indication s:DDD (degenerative disc disease), lumbar,Chronic bilateral low back pain without sciatica Take 1 Tablet by mouth at bedtime as needed for Pain or Muscle spasms. 30 Tablet 3 03/27/2024 Active Levothyroxine Sodium 137 MCG Oral TabletIndications:Ac quired hypothyroidism TAKE ONE TABLET by MOUTH IN THE morning. (AT least 30 MINUTES prior TO breakfast OR other meds) 90 Tablet 05/20/2024 Active Pantoprazole Sodium 40 MG Oral Tablet Delayed Release (Protonix)Indication s:Gastroesophageal reflux disease with esophagitis without hemorrhage Take 1 Tablet by mouth in the morning. 30 minutes before the first meal of the day. Do not crush, split or chew the tablet. 90 Tablet 1 05/19/2024 Active Gabapentin 300 MG Oral Capsule (Neurontin)Indicatio ns:DDD (degenerative disc disease), lumbar,Chronic bilateral low back pain without sciatica Take 1 Capsule by mouth in the morning and 1 Capsule before bedtime. 180 Capsule 1 06/11/2024 Active documented as of this encounter (statuses as of 06/20/2024) Active Problems Problem Noted Date Diagnosed Date Malignant neoplasm of upper lobe, right bronchus or lung 11/21/2023 Metastasis to mediastinal lymph node 11/21/2023 Other secondary scoliosis, thoracolumbar region 11/21/2023 Malignant neoplasm of lower lobe of right lung 0 04/26/2023 Infantile idiopathic scoliosis 04/26/2023 Iron deficiency anemia 02/23/2023 Gastroesophageal reflux dise ase with esophagitis without hemorrhage 11/07/2022 Age-related nuclear cataract, left eye Stage 3a chronic kidney disease 03/31/2022 History of breast cancer 03/31/2022 Chronic bilateral low back pain without sciatica 03/31/2022 DDD (degenerative disc disease), lumbar 03/31/20 Current mild episode of brody r depressive disorder without prior episode 03/31/2022 Anxiety 03/31/2022 History of CVA (cerebrovascular accident) 2021 Blindness of right eye with normal vision in contralateral eye 03/31/2022 Glaucoma associated with ocular disorder 011 Vitreous degeneration 07/18/2011 Central corneal ulcer 11/11/2010 documented as of this encounter (statuses as of 06/20/2024) Resolved Problems Problem Noted Date Diagnosed Date Resolved Date 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 03/31/2022 02/23/2023 Nuclear senile cataract 07/18/2011 07/0 04/2022 documented as of this encounter (statuses as of 06/20/2024) Social History Tobacco Use Types Packs/Day Years Used Date Smoking Tobacco: Every Day Cigarettes 1 48 Smokeless Tobacco: Never Alcohol Use Standard Drinks/Week Comments Yes 0 (1 standard drink = 0.6 oz pur e alcohol) rare Utilities Answer Date Recorded Do you have trouble paying y our heating, water, or electric bill? (Adult - for ages 18 years and over) Not on file 03/11/2024 Is your family able to pay t he heat, water, or electric bill? (Household - for ages 0-17 years) Not on file 03/11/2024 Does your family have access to good internet? (Household - for ages 0-17 years) Not on file 03/11/2024 Social Connections Answer Date Recorded How often do you feel lonely or isolated from those around you? (Adult - for ages 18 years and over) Not on file 03/11/2024 Sex and Gender Information Value Date Recorded Sex Assigned at Not on file Gender Identity Not on file Sexual Orientation Not on file Job Start Date Occupation Industry Not on file Not on file Not on file documented as of this encounter Miscellaneous Notes * Telephone Encounter - Michelle Ellis MD - 06/20/2024 8:34 AM EDT Was called last night around 9 for pt , regarding hospice care admission Nurse informed that pt's pain is not controlled with current pain meds , wanted to be adjusted by her doctor And also c/o nausea Contacted /notified PCP tiger text last night documented in this encounter Plan of Treatment Health Maintenance Due Date Last Done Comments COVID-19 Vaccine (#1) 1964 Depression Monitoring 1971 Albumin/Creatinine Ratio 1977 DTap/Tdap Vaccines (1 - Tdap) 1978 Zoster Vaccines (1 of 2) 1978 Mammogram 1999 Cologuard 2004 Colonoscopy 2004 Sigmoidoscopy 2004 Colorectal Cancer Screening 10/26/2012 Fecal Occult Blood Test 10/26/2012 10/26/2011 Pneumococcal Vaccine: Pediatrics (0 to 5 Years) and At-Risk Patients (6 to 64 Years) (2 of 2 - PCV) 04/03/2015 04/03/2014 CKD PHOS USE SMARTSET 59635 11/07/2023 11/07/2022 GFR 02/28/2024 08/29/2023, 07/25, 11/07/2022, Additional history exists Influenza Vaccine (FLU shot) (#1) 2024 12/09/2020 CKD HGB USE SMARTSET 41161 08/29/202408/29, 11/07/2022, 11/07/2022, Additional history exists TSH 08/29/2024 08/29/2023, 07/25, 11/07/2022, Additional history exists Lipid Panel 08/10/2028 08/10/2023, 07/0 04/2022, 12/27/2021 HPV (Gardasil) Vaccine Aged Out No lo nger eligible based on patient's age to complete this topic Hepatitis B Vaccine Aged Out No longe r eligible based on patient's age to complete this topic MENINGOCOCCAL (MENACTRA/MENVEO) Aged Out No longer eligible based on patient's age to complete this topic documented as of this encounter Medical Devices Not on filedocumented as of this encounter Advance Directives Documents on File Type Date Recorded Patient Wood Planer Expl anation POLST 06/07/2023 2:29 PM POLST (Dooley ited DNR) Advance Directives and Living Will 10/10/2010 Power of Fuel Quality Tech 10/03/2010 * Full Code (Latest Code Status on File) Date Activated Date Inactivated Comments 09/30/2010 7:18 AM 10/12/2010 8:30 PM This order re flects the patients wishes and were consensually agreed upon. * Full Code Date Activated Date Inactivated Comments 09/30/2010 7:05 AM 09/30/2010 7:18 AM This order ref lects the patients wishes and were consensually agreed upon. * Full Code Date Activated Date Inactivated Comments 09/28/2010 7:09 PM 09/30/2010 7:05 AM This order ref lects the patients wishes and were consensually agreed upon. Care Teams Carriage Operator Relationship Specialty Start Date End Date Wendie Ordoñez MD [address] [place] [address] APRIL Alan [phone] PCP - General Family Medicine 07/17/22 documented as of this encounter
--- OUTSIDE RECORDS SUMMARY | 2024-07-03 12:26 | External Medical Summary | Summary of Care ---
Author Name Unknown Organization [facility] Address [address] [place] [address] Phone [phone] Care Team Providers Care Nursing Service Director Name Role Phone Wendie Ordoñez MD Primary Care Provide r Reason for Visit * Reason Onset Date Comments After Hours Call 06/20/2024 Encounter Details Date Type Department Care Team (Late st Contact Info) Description 06/20/2024 Telephone [facility] [address] [place] [address] Michelle Ellis MD [address] [place] [address] After Hours Call Allergies Active Allergy Reactions Criticality Noted Date Comments Sulfamethoxazole-Trimethoprim 2021 documented as of this encounter (statuses as of 06/23/2024) Medications Medication Sig Dispensed Refills Start Date [...] as of this encounter (statuses as of 06/23/2024) Active Problems Problem Noted Date Diagnosed Date Malignant neoplasm of upper lobe, right bronchus or lung 11/21/2023 Metastasis to mediastinal lymph node 11/21/2023 Other secondary scoliosis, thoracolumbar region 11/21/2023 Malignant neoplasm of lower lobe of right lung 0 04/26/2023 Infantile idiopathic scoliosis 04/26/2023 Iron deficiency anemia 02/23/2023 Gastroesophageal reflux dise ase with esophagitis without hemorrhage 11/07/2022 Age-related nuclear cataract, left eye 3 Stage 3a chronic kidney disease 03/31/2022 History [...] as of this encounter (statuses as of 06/23/2024) Resolved Problems Problem Noted Date Diagnosed Date Resolved Date 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 03/31/2022 02/23/2023 Nuclear senile cataract 07/18/2011 07/0 04/2022 documented as of this encounter (statuses as of 06/23/2024) Social History Tobacco Use Types Packs/Day Years [...] encounter Miscellaneous Notes * Telephone Encounter - Bonnie Diez RN - 06/23/2024 12:28 PM EDT It Looks like Hem Onc covers her pain meds. She was seen last week [facility] Oncology * Telephone Encounter - Wendie Ordoñez MD - 06/20/2024 12:00 PM EDT Can we call the pt - if pt is already has hospice they will help her manage her pain therefore advise the pt to call the hospice team * Telephone Encounter - Michelle Ellis MD [...] PCV) 04/03/2015 04/03/2014 CKD PHOS USE SMARTSET 88794 11/07/2023 11/07/2022 GFR 02/28/2024 08/29/2023, 07/25, 11/07/2022, Additional history exists Influenza Vaccine (FLU shot) (#1) 2024 12/09/2020 CKD HGB USE SMARTSET 99266 08/29/202408/29, 11/07/2022, 11/07/2022, Additional history exists TSH 08/29/2024 08/29/2023, 07/25, 11/07/2022, Additional history exists Lipid Panel 08/10/2028 08/10/2023, 07/04/2022, 12/27/2021 HPV (Gardasil) Vaccine Aged Out No [...] Documents on File Type Date Recorded Patient Dimmer Board Operator Expl anation POLST 06/07/2023 2:29 PM POLST (Dooley ited DNR) Advance Directives and Living Will 10/10/2010 Power of Judge'S Clerk 10/03/2010 * Full Code (Latest Code Status [...] and were consensually agreed upon. Care Teams Nursing Service Director Relationship Specialty Start Date End Date Wendie Ordoñez MD [address] [place] [address] APRIL Alan [phone] PCP - General Family Medicine 07/17/22 documented as of this encounter
--- OUTSIDE RECORDS SUMMARY | 2024-07-03 12:26 | External Medical Summary | Summary of Care ---
Author Name Unknown Organization [facility] Address [address] [place] [address] Phone [phone] Care Team Providers Care Cash Register Balancer Name Role Phone Wendie Ordoñez MD Primary Care Provide r Reason for Visit * Reason Onset Date Comments Fax 06/18/2024 Encounter Details Date Type Department Care Team (Late st Contact Info) Description 06/18/2024 Telephone Family Medicine [address] [address] Wendie Ordoñez MD [address] [place] [address] [place] [address] Fax Allergies Active Allergy Reactions Criticality Noted Date Comments Sulfamethoxazole-Trimethoprim 2021 documented as of this encounter (statuses as of 06/18/2024) Medications Medication Sig Dispensed Refills Start Date [...] as of this encounter (statuses as of 06/18/2024) Active Problems Problem Noted Date Diagnosed Date [...] as of this encounter (statuses as of 06/18/2024) Resolved Problems Problem Noted Date Diagnosed Date Resolved Date 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 03/31/2022 02/23/2023 Nuclear senile cataract 07/18/2011 07/0 04/2022 documented as of this encounter (statuses as of 06/18/2024) Social History Tobacco Use Types Packs/Day Years [...] Telephone Encounter - Bonnie Diez RN - 06/18/2024 4:02 PM EDT faxed * Telephone Encounter - Anni Schuster OSA - 06/18/2024 3:16 PM EDT Rowan from [facility] called asking for patients last office note, demographics, and medicationlist. Please fax to [phone]. documented in this encounter Plan of Treatment [...] PCV) 04/03/2015 04/03/2014 CKD PHOS USE SMARTSET 93571 11/07/2023 11/07/2022 GFR 02/28/2024 08/29/2023, 07/25, 11/07/2022, Additional history exists Influenza Vaccine (FLU shot) (#1) 2024 12/09/2020 CKD HGB USE SMARTSET 15103 08/29/202408/29, 11/07/2022, 11/07/2022, Additional history exists TSH [...] Documents on File Type Date Recorded Patient Drug Coordinator Expl anation POLST 06/07/2023 2:29 PM POLST (Dooley ited DNR) Advance Directives and Living Will 10/10/2010 Power of Slag Expander 10/03/2010 * Full Code (Latest Code Status [...] and were consensually agreed upon. Care Teams Cash Register Balancer Relationship Specialty Start Date End Date Wendie Ordoñez MD [address] [place] [address] APRIL Alan [phone] PCP - General Family Medicine 07/17/22 documented as of this encounter
--- OUTSIDE RECORDS SUMMARY | 2024-07-03 12:26 | External Medical Summary | Summary of Care ---
Author Name Unknown Organization [facility] Address [address] [place] [address] Phone [phone] Care Team Providers Care Miller Wood Flour Name Role Phone Wendie Ordoñez MD Primary Care Provide r Reason for Visit * Reason Onset Date Comments After Hours Call 06/20/2024 Encounter Details Date Type Department Care Team (Late st Contact Info) Description 06/20/2024 Telephone [facility] [address] [place] [address] Michelle Ellis MD [address] [place] [address] After Hours Call Allergies Active [...] encounter Miscellaneous Notes * Telephone Encounter - Wendie Ordoñez MD [...] PCV) 04/03/2015 04/03/2014 CKD PHOS USE SMARTSET 10861 11/07/2023 11/07/2022 GFR 02/28/2024 08/29/2023, 07/25, 11/07/2022, Additional history exists Influenza Vaccine (FLU shot) (#1) 2024 12/09/2020 CKD HGB USE SMARTSET 22666 08/29/202408/29, 11/07/2022, 11/07/2022, Additional history exists TSH [...] Documents on File Type Date Recorded Patient Jewelry Model Maker Expl anation POLST 06/07/2023 2:29 PM POLST (Dooley ited DNR) Advance Directives and Living Will 10/10/2010 Power of Special Effects Specialist 10/03/2010 * Full Code (Latest Code Status [...] and were consensually agreed upon. Care Teams Miller Wood Flour Relationship Specialty Start Date End Date Wendie Ordoñez MD [address] [place] [address] APRIL Alan [phone] PCP - General Family Medicine 07/17/22 documented as of this encounter
--- OUTSIDE RECORDS SUMMARY | 2024-07-03 12:26 | External Medical Summary | Summary of Care ---
Author Name Unknown Organization [facility] Address [address] [place] [address] Phone [phone] Care Team Providers Care Supervisor Pressing Department Name Role Phone Wendie Ordoñez MD Primary Care Provide r Reason for Visit * Reason Onset Date Comments Advice 03/15/2024 Encounter Details Date Type Department Care Team (Late st Contact Info) Description 03/15/2024 Telephone Family Medicine [address] [address] Wendie Ordoñez MD [address] [place] [address] [place] [address] Advice Allergies Active Allergy Reactions Criticality Noted Date Comments Sulfamethoxazole-Trimethoprim 2021 documented as of this encounter (statuses as of 06/14/2024) Medications Medication Sig Dispensed Refills Start Date End Date Status Aspirin EC 81 MG Oral Tablet Delayed ReleaseIndications :History of CVA (cerebrovascular accident) Take by mouth 1 Tablet in the morning. 100 Tablet 3 03/31/2022 Active Atorvastatin Calcium 40 MG Oral Tablet (Lipitor)Indicatio ns:Dyslipidemia, goal LDL below 130 TAKE ONE TABLET BY MOUTH EVERY MORNING 90 Tablet 1 03/30/2023 Active Additional Information Patient not taking.Reported on 06/06/2023 oxyCODONE HCl 5 MG Oral Tablet Abuse-Deterrent Take 5 mg by mouth every 4 hours as needed for Pain, Severe. Active Furosemide 20 MG Oral Tablet (Lasix)Indications :Leg swelling Take 1 Tablet by mouth daily as needed (leg swelling). 30 Tablet 2 08/27/2023 Active FLUoxetine HCl 20 MG Oral Capsule (PROzac)Indication s:Anxiety,Current mild episode of major depressive disorder without prior episode (HCC) Take 1 Capsule by mouth in the morning. 90 Capsule 2 11/21/2023 Active Meloxicam 7.5 MG Oral Tablet (Mobic)Indications :Chronic bilateral low back pain without sciatica TAKE ONE TABLET BY MOUTH IN THE MORNING FOR PAIN 30 Tablet 11 02/01/2024 Active hydrOXYzine HCl 50 MG Oral TabletIndications: Anxiety Take 1 Tablet by mouth 3 times a day as needed for Anxiety. 40 Tablet 1 02/26/2024 Active Rizatriptan Benzoate 5 MG Oral TabletIndications: Migraine variant Take 1 Tablet by mouth as needed for Migraine. May repeat in 2 hours if needed. Maximum 30mg in 24 hours 10 Tablet 3 02/28/2024 Active documented as of this encounter (statuses as of 06/14/2024) Active Problems Problem Noted Date Diagnosed Date [...] as of this encounter (statuses as of 06/14/2024) Resolved Problems Problem Noted Date Diagnosed Date Resolved Date 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 03/31/2022 02/23/2023 Nuclear senile cataract 07/18/2011 07/0 04/2022 documented as of this encounter (statuses as of 06/14/2024) Social History Tobacco Use Types Packs/Day Years [...] Telephone Encounter - Bonnie Diez RN - 03/17/2024 3:42 PM EDT No answer, no machine. Pt will need an appt with any provider or [facility] ( pt does have an appt next week with PCP) * Telephone Encounter - Rachel Chavarria OSA - 03/15/2024 11:18 AM EDT Patient called she has a rash, scalp, shoulders, and arms. I offered an appt she wants someone to call her so she can talk to someone about this. She wants something to put on it. documented in this encounter Plan of Treatment [...] PCV) 04/03/2015 04/03/2014 CKD PHOS USE SMARTSET 50250 11/07/2023 11/07/2022 GFR 02/28/2024 08/29/2023, 07/25, 11/07/2022, Additional history exists Influenza Vaccine (FLU shot) (#1) 2024 12/09/2020 CKD HGB USE SMARTSET 09211 08/29/202408/29, 11/07/2022, 11/07/2022, Additional history exists TSH [...] Documents on File Type Date Recorded Patient Dinkey Engineer Expl anation POLST 06/07/2023 2:29 PM POLST (Miah ited DNR) Advance Directives and Living Will 10/10/2010 Power of Order Picker/Assembler 10/03/2010 * Full Code (Latest Code Status [...] and were consensually agreed upon. Care Teams Supervisor Pressing Department Relationship Specialty Start Date End Date Wendie Ordoñez MD [address] [place] [address] APRIL Alan [phone] PCP - General Family Medicine 07/17/22 documented as of this encounter
--- NOTE | 2024-07-03 14:54 | Palliative Care Consultation ---
Date of Consultation July 03, 2024 Assessment & Plan (1) Cancer related pain: Poorly controlled cancer pain with Oxy IR 10 mg dose. Will increase this to Oxy IR 15 mg p.o. every 3 hours as needed for breakthrough pain, hold for somnolence or respiratory rate less than 14. Will continue MS IV dose unchanged. Bowel regimen reaffirmed. (2) Weakness generalized: (3) Headache: (4) Advanced care planning/counseling discussion: I met with Salina [id number] at bedside for approximately 30 minutes for an ongoing advance care planning discussion. Her goal is ultimately to return home with hospice. She lives in her own home and has support from her family. She has a small dog who has her canine client administrator. Her [id number] is currently watching her pet and she is grateful for the assistance from her family. She feels comfortable returning with the addition of hospice and states that she just needed her pain better controlled. As soon as we figure out an oral regimen that will work well for her, she is eager to return to her home. (5) Palliative care by specialist: Plan As above Thank you for allowing us to participate in the ongoing care of this patient. Please page with any additional concerns. Zachary Townsend DNP Director, Palliative Medicine History of Present Illness Reason for Consultation: home hospice pt, here with refractory cancer pain Attending Physician: Salma Parra MD History of Present Illness Salina is a 63-year-old female with a history of thyroid cancer and current adenocarcinoma of the right lower lung. She has very severe cancer pain and transitioned to comfort care with home hospice approximately 1 week ago. Her cancer was originally diagnosed in January 2024 and she had been taking cancer directed therapy until a repeat scan showed disease progression and she chose to transition to hospice. She admitted from home hospice with a complaint of refractory cancer related pain which has been poorly controlled. She was given IV morphine in the ED with good response. At home she was taking MS Contin along with Oxy IR. She has a past medical history significant for anxiety, depression, insomnia. She reports some ongoing long-term chronic issues with back pain. She was given 4 mg of morphine IV in the ER with good response. Since admission she has been taking oxycodone 10 mg every 4 as needed and has the option of MS IR IV 3 mg every 3 hours as needed. She tells me that the Oxy IR helps but does not last more than 2 hours. Pain continues to persist and she relates that there was no relief with MS Contin and she does not wish to restart it. She felt the most relief with Oxy IR. Allergies Allergy/AdvReac Type Severity Reaction Status Date / Time sulfamethoxazole AdvReac hand Verified 01/28/24 11:13 [From Bactrim] swelling trimethoprim [From Bactrim] AdvReac hand Verified 01/28/24 11:13 swelling Home Medications Medication Instructions Recorded Confirmed Type albuterol sulfate 2.5 mg/3 mL 2.5 mg inhalation Q4H PRN 10/17/23 07/02/24 History (0.083 %) solution for nebulization Shortness Of Breath cyclobenzaprine 10 mg tablet 10 mg PO HS PRN Muscle Spasm 10/17/23 07/02/24 History famotidine 20 mg tablet (Pepcid) 20 mg PO HS 10/17/23 07/02/24 History gabapentin 300 mg capsule 300 mg PO AMHS 10/17/23 07/02/24 History levothyroxine 137 mcg capsule 137 mcg PO DAILY 10/17/23 07/02/24 History pantoprazole 40 mg tablet,delayed 40 mg PO DAILYBB 10/17/23 07/02/24 History release rizatriptan 5 mg tablet 5 mg PO Q2H PRN Migraine Headache 10/17/23 07/02/24 History lorazepam 1 mg tablet 1 mg PO DAILY PRN Anxiety 12/26/23 07/02/24 History hydroxyzine HCl 50 mg tablet 50 mg PO TID PRN Anxiety 07/02/24 07/02/24 History morphine 15 mg tablet,extended 15 mg PO Q12 07/02/24 07/02/24 History release ondansetron HCl 8 mg tablet 8 mg PO Q8 PRN Nausea 07/02/24 07/02/24 History oxycodone 10 mg tablet 10 mg PO .Q 4-6 HR PRN Pain 07/02/24 07/02/24 History venlafaxine 75 mg capsule,extended 75 mg PO DAILY 07/02/24 07/02/24 History release 24 hr (Effexor XR) Patient History Medical History Thyroid cancer Migraines Lumbar stenosis Hypothyroidism Hyperlipidemia Arthritis Scoliosis Iron deficiency anemia GERD (gastroesophageal reflux disease) Blindness of right eye CVA (cerebral vascular accident) Anxiety Depression Degenerative disc disease, lumbar Chronic low back pain Breast cancer, right Chronic kidney disease Vitreous degeneration Glaucoma Central corneal ulcer Surgical History 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 Mother No problems noted. Brother No problems noted. Brother No problems noted. Brother No problems noted. Sister No problems noted. Son No problems noted. Grandfather (Maternal) Colorectal cancer Grandmother (Paternal) Colorectal cancer tumor in stomache Social History Smoking Status: Current some day smoker Tobacco Type: Cigarettes Cigarettes Per Day: 1 pack per day, patient reports she is working on cessation; Second Hand Exposure: No; Do You Dip or Chew Tobacco: No; Hx Alcohol Use: No Hx Substance Use: Yes Preferred Language: Spanish Communication Ability: Effective Visual Impairment: Limited Hearing Ability: Normal Strike Plate Attacher Required: No Beliefs That Will Affect Care: Spiritual Current Living Situation: Alone How many Children do You have: 1 Other Information That Helps Us Care for You: No Feels Safe at Home: Yes Safety Concerns: Feels Safe At This Time Childhood Exposure to Second-Hand Smoke: No Diet: regular during the past year weight has: decreased > 10 lbs Assistive Devices: Denture - Upper and Glasses Review of Systems Review of Systems: All systems reviewed & are unremarkable except as noted in Subjective Physical Exam Physical Exam: Chronically ill, frail female semireclined in bed. Bitemporal wasting. PERRLA, EOMI's. Anicteric sclera. Neck is supple, no stridor. Dentition poor. Multiple caries and missing dentition. Mucosa dry. No oral thrush noted. Trachea midline without thyromegaly. Respiratory effort normal lungs are diminished bilaterally with crackles in the basilar lobes. Heart tones S1-S2, no obvious murmur. No gross JVD. Abdomen scaphoid, mildly tender, bowel sounds noted. Generalized weakness throughout. Skin is pale with scattered ecchymoses. She is awake alert oriented x 3. Mood is stable. Results & Data Vital Signs (Past 12 Hours) Vital Signs O2 Del Method 07/03/24 07:23 Room Air PG Care Time/CCT Total # of Minutes Spent Total Time Spent with Patient: Total time spent is greater than 50% in coordination of care (as documented) at patient's floor/unit and/or counseling patient: I spent 70 minutes overall addressing this case: 15 min in medical data review/discussion with referring provider(s) and/or preparation for the visit 15 min in direct interaction with the patient/exam 30 min in Advance Care Planning/Goals of Care discussions as detailed above in note (must be >16min) 5 min in subsequent review and synthesis of assessment and plan 5 min communicating with other providers regarding the patient's case: Advanced Care Planning 93505 Advanced Care Planning 30 [place] [address] IN/OBS CONSULT LVL 3,45M (25 - SIGNIFICANT, SEPARATELY IDENTIFIABLE ) Patient Type New Medical Decision Making High Complexity Diagnoses Cancer related pain G89.3 Weakness generalized R53.1 Headache R51.9 Advanced care planning/counseling discussion Z71.89 Palliative care by specialist Z51.5 Additional Codes Advanced Care Planning - 94261 Advanced Care Planning 30 Min: 58837 Advanced Care Planning 30 Min ([id number])
[2024-07-03] MEDS: oxyCODONE HCL IR 5 MG TAB (IMMEDIATE RELEASE) PO PRN (15:35)
--- NOTE | 2024-07-03 15:54 | Discharge Summary ---
Discharge Summary Date of Service July 03, 2024 Principal Dx & Hospital Course #1 = Principal Diagnosis (1) Adenocarcinoma of lower lobe of right lung: (2) Hypothyroidism: (3) Thyroid cancer: (4) Iron deficiency anemia: (5) GERD (gastroesophageal reflux disease): (6) Anxiety: (7) Depression: Plan Patient is a 63-year-old female with past medical history of metastatic lung cancer, anxiety, depression and other medical problems who is currently on hospice presents with history of worsening back pain. She was unable to manage her pain at home and so came to ED for further evaluation at the direction of hospice. Was admitted under the medical service. Per further discussion with Case management and [facility] today, patient to be admitted under [facility] to retain hospice status. Palliative care consulted for recommendations regarding pain control - increasing oxycodone to 15mg PO Q3H for better pain control. Notes For Next Care Provider Medication Changes From Visit increasing oxycodone to 15mg PO Q3H for better pain control. Admission HPI Per Admitting Provider The patient is a 63-year-old female with a past medical history anxiety, depression, insomnia, and metastatic lung cancer who recently transitioned to comfort measures only about a week ago Who reports to the ED on 07/02/2024 with complaints of severe back pain. The patient is currently on hospice and reports that she called the hospice nurse and told her that her pain is not being con trolled. She has been taking oral morphine and oxycodone for breakthrough pain. The hospice nurse and director her to call EMS to be taken to the hospital for better pain management. She received 4 mg of IV morphine in the ED and said that this helped a little bit. On exam, she reports severe pain with any type of movement. She reports generalized bone pain constantly. She denies any chest pain or shortness of breath. She denies any recent nausea/vomiting. She does report some indigestion and is requesting Pepcid. Otherwise denies any other complaints. The patient will be admitted for further pain management. Admission Exam Per Admitting Provider Constitutional: WD/WN, vitals as above + ill appearing and + lethargic Eyes: PERRL, conjunctivae normal, anicteric sclerae ENMT: external ear and nose normal, oropharynx normal Neck: trachea midline, no thyromegaly Respiratory: normal respiratory effort, lungs clear to auscultation (Rales in bilateral lobes) Cardiovascular: RRR, no murmur, no edema Gastrointestinal (Abdomen): normal bowel sounds, soft, nontender, no hepatosplenomegaly Musculoskeletal: no cyanosis or clubbing, extremities motor strength 5/5 Skin: no rashes, warm and dry (Scattered bruising) Neurologic: PERRL, EOMI, accommodation nl, no face palsy, no dysarthria Psychiatric: A+Ox3, euthymic affect Lymphatic: no cervical or axillary lymphadenopathy Discharge Exam Gen: WD/WN, NAD, sitting in bedside chair, lethargic but responds to questions HEENT: Normocephalic, atraumatic, conjunctivae moist, sclerae anicteric, mucous membranes moist Lung: Clear to Auscultation bilaterally, no wheezes/rales/rhonchi Heart: Regular rate, regular rhythm, no murmurs, rubs, or gallops Abdomen: Soft, NT, ND +BS x 4 Extremities: no edema Skin: Warm, no rash Updated Medication List Medication Instructions Recorded Confirmed Type albuterol sulfate 2.5 mg/3 mL 2.5 mg inhalation Q4H PRN 10/17/23 07/02/24 History (0.083 %) solution for nebulization Shortness Of Breath cyclobenzaprine 10 mg tablet 10 mg PO HS PRN Muscle Spasm 10/17/23 07/02/24 History famotidine 20 mg tablet (Pepcid) 20 mg PO HS 10/17/23 07/02/24 History gabapentin 300 mg capsule 300 mg PO AMHS 10/17/23 07/02/24 History levothyroxine 137 mcg capsule 137 mcg PO DAILY 10/17/23 07/02/24 History pantoprazole 40 mg tablet,delayed 40 mg PO DAILYBB 10/17/23 07/02/24 History release rizatriptan 5 mg tablet 5 mg PO Q2H PRN Migraine Headache 10/17/23 07/02/24 History lorazepam 1 mg tablet 1 mg PO DAILY PRN Anxiety 12/26/23 07/02/24 History hydroxyzine HCl 50 mg tablet 50 mg PO TID PRN Anxiety 07/02/24 07/02/24 History morphine 15 mg tablet,extended 15 mg PO Q12 07/02/24 07/02/24 History release ondansetron HCl 8 mg tablet 8 mg PO Q8 PRN Nausea 07/02/24 07/02/24 History oxycodone 10 mg tablet 10 mg PO .Q 4-6 HR PRN Pain 07/02/24 07/02/24 History venlafaxine 75 mg capsule,extended 75 mg PO DAILY 07/02/24 07/02/24 History release 24 hr (Effexor XR) Hospital Stay Data Consultations 07/02/24 17:16 ED Decision to Admit Stat 07/02/24 20:38 Consult Palliative Care Routine Pending Results Patient Have Any Pending Studies at Discharge: No Discharge Instructions Given to Patient (Per Discharging Provider) Admitted to [facility] for continued hospice care Total Time Total Time Spent Total Time Spent (In Minutes): 35 Supervising Physician Co-Signing Physician Notes I have seen and discussed the case with the collaborating advanced practitioner. I agree with the above DS I have reviewed and confirmed the patients medical history, the findings on physical examination, and the patients diagnosis and treatment plan with Santhosh ROD and agree with the information documented. Ms. Trujillo is a 63 yo woman with pmhx of metastatic adenocarcinoma of the lung. Patient transitioned to hospice a week ago and was admitted 2/2 poorly controlled pain. Patient discharged with plans for readmission to [facility] for active pain control iso metastatic disease. I spent a total of 10 minutes coordinating, documenting, and providing care for this patient excluding time spent in the performance of separately billed services. All of the aforementioned completed outside of collaborating with the assigned advanced practitioner for a full treatment plan. I have reviewed the advanced practitioner's documentation, and I agree with, and take responsibility for the plan of care
== END 2024-07-03 16:21 | disposition hospice, inpatient (51) | DRG 948 ==
LOC: ED 16:37 → 3E 18:42 → SUATTDRO 18:42 → 3E 20:37

== ENCOUNTER 2024-07-03 16:16 | Inpatient (IN) ==
[2024-07-03] MEDS ORDERED: POLYETHYLENE (MIRALAX) 17 GM PACK PO PRN (16:28)
[2024-07-03] MEDS ORDERED: ONDANSETRON INJ 2 MG/ML 2 ML VIAL IV PRN (16:28)
[2024-07-03] MEDS ORDERED: LORazepam 2 MG/1 ML VIAL IV PRN (16:31)
[2024-07-03] MEDS ORDERED: ALBUTEROL 0.083% NEBU SOLN 3 ML VIAL INH PRN (16:34)
[2024-07-03] MEDS ORDERED: RIZATRIPTAN BENZOATE 10 MG TAB PO PRN (16:34)
[2024-07-03] MEDS ORDERED: hydrOXYzine HCl 25 MG TAB PO PRN (16:34)
[2024-07-03] MEDS ORDERED: CYCLOBENZAPRINE HCL 10 MG TAB PO PRN (16:34)
--- NOTE | 2024-07-03 16:38 | History & Physical Report ---
Date of Service July 03, 2024 Assessment & Plan (1) Adenocarcinoma of lower lobe of right lung: (2) Cancer related pain: (3) Hospice care patient: Plan: This is a 63yo F with a PMH of metastatic lung cancer on hospice, anxiety, depression, insomnia and other medical problems listed below who presents at the direction of hospice to optimize pain control. Adenocarcinoma of lower lobe right lung Cancer related pain In patient hospice admission [facility] hospice patient, recently transitioned to hospice within the last month once repeat scans demonstrated cancer progression Evaluated by palliative care today - poorly controlled pain on Oxy IR 10mg - increased to Oxy 15mg IR PO Q3H as needed for breakthrough pain, hold for somnolence or respiratory rate less than 14 Not finding benefit of MS Contin and does not wish to continue taking it Continue IV morphine 3mg IV Q3H for pain Continue bowel regimen CM coordinating disposition home with hospice vs placement Care coordinated with Dr. Parra I spent a total of 55 minutes coordinating, documenting, and providing care for this patient excluding time spent in the performance of separately billed services. History of Present Illness Chief Complaint: pain control, GIP Primary Care Provider: Wendie Ordoñez MD This is a 63yo F with a PMH of metastatic lung cancer on hospice, anxiety, depression, insomnia and other medical problems listed below who presents at the direction of hospice to optimize pain control. She has history of history of thyroid cancer and current adenocarcinoma of the right lower lung with associated cancer pain and transitioned to comfort care with home hospice a pproximately 1 week ago, when she stopped her cancer directed therapy. She was initially admitted to medicine service but once care coordinated with Emigdio today are able to admit under GIP. Patient seen in room 311 earlier today and was comfortable having just received pain medication. Home pain regimen has included MS Contin Q12 as well as PRN oxycodone. No F/C, CP, SOB, N/V, abd pain, dysuria, diarrhea. Continue bowel regimen. Allergies Allergy/AdvReac Type Severity Reaction Status Date / Time sulfamethoxazole AdvReac hand Verified 01/28/24 11:13 [From Bactrim] swelling trimethoprim [From Bactrim] AdvReac hand Verified 01/28/24 11:13 swelling Home Medications Medication Instructions Recorded Confirmed Type albuterol sulfate 2.5 mg/3 mL 2.5 mg inhalation Q4H PRN 10/17/23 07/03/24 History (0.083 %) solution for nebulization Shortness Of Breath cyclobenzaprine 10 mg tablet 10 mg PO HS PRN Muscle Spasm 10/17/23 07/03/24 History famotidine 20 mg tablet (Pepcid) 20 mg PO HS 10/17/23 07/03/24 History gabapentin 300 mg capsule 300 mg PO AMHS 10/17/23 07/03/24 History levothyroxine 137 mcg capsule 137 mcg PO DAILY 10/17/23 07/03/24 History pantoprazole 40 mg tablet,delayed 40 mg PO DAILYBB 10/17/23 07/03/24 History release rizatriptan 5 mg tablet 5 mg PO Q2H PRN Migraine Headache 10/17/23 07/03/24 History lorazepam 1 mg tablet 1 mg PO DAILY PRN Anxiety 12/26/23 07/03/24 History hydroxyzine HCl 50 mg tablet 50 mg PO TID PRN Anxiety 07/02/24 07/03/24 History morphine 15 mg tablet,extended 15 mg PO Q12 07/02/24 07/03/24 History release ondansetron HCl 8 mg tablet 8 mg PO Q8 PRN Nausea 07/02/24 07/03/24 History oxycodone 10 mg tablet 10 mg PO .Q 4-6 HR PRN Pain 07/02/24 07/03/24 History venlafaxine 75 mg capsule,extended 75 mg PO DAILY 07/02/24 07/03/24 History release 24 hr (Effexor XR) Past Med/Surg History Problem List Hospice care patient Palliative care by specialist Advanced care planning/counseling discussion Weakness generalized Cancer related pain Headache Blurred vision Adenocarcinoma of lower lobe of right lung (Chronic 05/02/23) Right lower lobe pulmonary nodule Malignant neoplasm of lung Biopsy on 04/10/23 History of bronchoscopy 04/10/23 Medical History Thyroid cancer Migraines Lumbar stenosis Hypothyroidism Hyperlipidemia Arthritis Scoliosis Iron deficiency anemia GERD (gastroesophageal reflux disease) Blindness of right eye CVA (cerebral vascular accident) Anxiety Depression Degenerative disc disease, lumbar Chronic low back pain Breast cancer, right Chronic kidney disease Vitreous degeneration Glaucoma Central corneal ulcer Surgical History 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 Mother No problems noted. Brother No problems noted. Brother No problems noted. Brother No problems noted. Sister No problems noted. Son No problems noted. Grandfather (Maternal) Colorectal cancer Grandmother (Paternal) Colorectal cancer tumor in stomache Social History Smoking Status: Current some day smoker Tobacco Type: Cigarettes Cigarettes Per Day: 1 pack per day, patient reports she is working on cessation; Second Hand Exposure: No; Do You Dip or Chew Tobacco: No; Hx Alcohol Use: No Hx Substance Use: Yes Preferred Language: Puerto Rican Communication Ability: Effective Visual Impairment: Limited Hearing Ability: Normal Drafter Marine Required: No Beliefs That Will Affect Care: Spiritual Current Living Situation: Alone How many Children do You have: 1 Feels Safe at Home: Yes Childhood Exposure to Second-Hand Smoke: No Diet: regular during the past year weight has: decreased > 10 lbs Assistive Devices: Denture - Upper and Glasses Review of Systems Review of Systems: At least ten systems reviewed and negative except as noted in the HPI. Physical Exam Physical Exam: General Appearance: WD/WN, vitals as above, appears chronically ill, frail Head: normocephalic, atraumatic Eyes: normal inspection, PERRL, conjunctivae normal, anicteric sclerae ENT: external ear and nose normal, oropharynx normal, poor dentition Neck: normal visual inspection Respiratory: normal respiratory effort, diminished lung sounds with bibasilar rales Cardiovascular: regular rate, rhythm, trace BLE edema. Vessels: no JVD Chest: normal inspection of chest Abdomen/GI: normal bowel sounds, soft, nontender, no hepatosplenomegaly Extremities/Musculoskeletal: no cyanosis or clubbing, extremities motor strength 5/5 Neurologic: PERRL, EOMI, accommodation nl, no face palsy, no dysarthria, CN's II-XI intact bilaterally and moves all extremities Psychiatric: A+Ox3, euthymic affect Skin: no rashes, normal color, warm/dry Code Status & VTE Plan VTE Prophylaxis Plan VTE Prophylaxis will be ordered: No Reason for no VTE drug order: Treatment not indicated Supervising Physician Co-Signing Physician Notes I have seen and discussed the case with the collaborating advanced practitioner. I agree with the above H&P. I have reviewed and confirmed the patients medical history, the findings on physical examination, and the patients diagnosis and treatment plan with Santhosh ROD and agree with the information documented. Ms. Trujillo is a 63 yo woman with pmhx of metastatic adenocarcinoma of the lung. Patient transitioned to hospice a week ago and was admitted 2/2 poorly controlled pain. Patient discharged and readmitted on GIP Reviewed pain recs from Palliative Care. I spent a total of 10 minutes coordinating, documenting, and providing care for this patient excluding time spent in the performance of separately billed services. All of the aforementioned completed outside of collaborating with the assigned advanced practitioner for a full treatment plan. I have reviewed the advanced practitioner's documentation, and I agree with, and take responsibility for the plan of care
[2024-07-03] MEDS ORDERED: ONDANSETRON 4 MG OD TAB PO PRN (16:45)
[2024-07-03] MEDS: POLYETHYLENE (MIRALAX) 17 GM PACK PO SCH (18:32)
[2024-07-03] MEDS: oxyCODONE HCL IR 5 MG TAB (IMMEDIATE RELEASE) PO PRN (19:56)
[2024-07-03] MEDS: FAMOTIDINE 20 MG TAB PO SCH (19:57)
[2024-07-03] MEDS: GABAPENTIN 300 MG CAP PO SCH (19:57)
--- NOTE | 2024-07-03 20:37 | Palliative Care Consultation ---
Date of Consultation July 03, 2024 Assessment & Plan (1) Palliative care by specialist: (2) Hospice care patient: Plan TRansitional admission for GIP See earlier consult note from this afternoon Palliative Medicine is assisting with pain mgt. Thank you for allowing us to participate in the ongoing care of this patient. Please page with any additional concerns. Zachary Townsend DNP Director, Palliative Medicine History of Present Illness Attending Physician: Salma Parra MD History of Present Illness GIP Admission Allergies Allergy/AdvReac Type Severity Reaction Status Date / Time sulfamethoxazole AdvReac hand Verified 01/28/24 11:13 [From Bactrim] swelling trimethoprim [From Bactrim] AdvReac hand Verified 01/28/24 11:13 swelling Home Medications Medication Instructions Recorded Confirmed Type albuterol sulfate 2.5 mg/3 mL 2.5 mg inhalation Q4H PRN 10/17/23 07/03/24 History (0.083 %) solution for nebulization Shortness Of Breath cyclobenzaprine 10 mg tablet 10 mg PO HS PRN Muscle Spasm 10/17/23 07/03/24 History famotidine 20 mg tablet (Pepcid) 20 mg PO HS 10/17/23 07/03/24 History gabapentin 300 mg capsule 300 mg PO AMHS 10/17/23 07/03/24 History levothyroxine 137 mcg capsule 137 mcg PO DAILY 10/17/23 07/03/24 History pantoprazole 40 mg tablet,delayed 40 mg PO DAILYBB 10/17/23 07/03/24 History release rizatriptan 5 mg tablet 5 mg PO Q2H PRN Migraine Headache 10/17/23 07/03/24 History lorazepam 1 mg tablet 1 mg PO DAILY PRN Anxiety 12/26/23 07/03/24 History hydroxyzine HCl 50 mg tablet 50 mg PO TID PRN Anxiety 07/02/24 07/03/24 History morphine 15 mg tablet,extended 15 mg PO Q12 07/02/24 07/03/24 History release ondansetron HCl 8 mg tablet 8 mg PO Q8 PRN Nausea 07/02/24 07/03/24 History oxycodone 10 mg tablet 10 mg PO .Q 4-6 HR PRN Pain 07/02/24 07/03/24 History venlafaxine 75 mg capsule,extended 75 mg PO DAILY 07/02/24 07/03/24 History release 24 hr (Effexor XR) Patient History Medical History Thyroid cancer Migraines Lumbar stenosis Hypothyroidism Hyperlipidemia Arthritis Scoliosis Iron deficiency anemia GERD (gastroesophageal reflux disease) Blindness of right eye CVA (cerebral vascular accident) Anxiety Depression Degenerative disc disease, lumbar Chronic low back pain Breast cancer, right Chronic kidney disease Vitreous degeneration Glaucoma Central corneal ulcer Surgical History 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 Mother No problems noted. Brother No problems noted. Brother No problems noted. Brother No problems noted. Sister No problems noted. Son No problems noted. Grandfather (Maternal) Colorectal cancer Grandmother (Paternal) Colorectal cancer tumor in stomache Social History Smoking Status: Current some day smoker Tobacco Type: Cigarettes Cigarettes Per Day: 1 pack per day, patient reports she is working on cessation; Second Hand Exposure: No; Do You Dip or Chew Tobacco: No; Hx Alcohol Use: No Hx Substance Use: Yes Preferred Language: Senegalese Communication Ability: Effective Visual Impairment: Limited Hearing Ability: Normal Mouthpiece Maker Required: No Beliefs That Will Affect Care: None Current Living Situation: Alone How many Children do You have: 1 Other Information That Helps Us Care for You: No Feels Safe at Home: Yes Safety Concerns: Feels Safe At This Time Childhood Exposure to Second-Hand Smoke: No Diet: regular during the past year weight has: decreased > 10 lbs Assistive Devices: Denture - Upper and Glasses Physical Exam Physical Exam: see previous note from today Results & Data Vital Signs (Past 12 Hours) Vital Signs O2 Del Method 07/03/24 16:41 Room Air 07/03/24 16:28 Room Air PG Care Time/CCT Total # of Minutes Spent Total Time Spent with Patient: Total time spent is greater than 50% in coordination of care (as documented) at patient's floor/unit and/or counseling patient: Coding Level of Care Code New Pt None Patient Type New Diagnoses Palliative care by specialist Z51.5 Hospice care patient Z51.5
[2024-07-03] MEDS ORDERED: MoRPHine SULFATE CR 15 MG TABCR PO SCH (21:00)
[2024-07-03] MEDS: MoRPHine SULFATE 4 MG/ML 1 ML CARP\\VIAL IV PRN (22:13)
[2024-07-04] MEDS: LEVOTHYROXINE SODIUM 137 MCG TABLET PO SCH (05:22)
[2024-07-04] MEDS: LORazepam 1 MG TAB PO PRN (05:22)
[2024-07-04] MEDS: bisacodyL 5 MG TABEC PO PRN (09:26)
[2024-07-04] MEDS: VENLAFAXINE HCL XR 75 MG CAPXR PO SCH (09:26)
--- NOTE | 2024-07-04 13:21 | Hospitalist Progress Note ---
Date of Service July 04, 2024 Assessment & Plan (1) Adenocarcinoma of lower lobe of right lung: (2) Cancer related pain: (3) Hospice care patient: Plan: This is a 63yo F with a PMH of metastatic lung cancer on hospice, anxiety, depression, insomnia and other medical problems listed below who presents at the direction of hospice to optimize pain control. Adenocarcinoma of lower lobe right lung Cancer related pain In patient hospice admission [facility] hospice patient, recently transitioned to hospice within the last month once repeat scans demonstrated cancer progression Evaluated by palliative care today - poorly controlled pain on Oxy IR 10mg - increased to Oxy 15mg IR PO Q3H as needed for breakthrough pain, hold for somnolence or respiratory rate less than 14 Not finding benefit of MS Contin and does not wish to continue taking it Continue IV morphine 3mg IV Q3H for pain Augmented bowel regimen this AM (last bowel movement 07/01) CM coordinating disposition home with hospice vs placement - per discussion with CM, significant concern for return to home given inability to take medications appropriately, cockroaches in apt, and not able to make/obtain meals on a regular basis. OOA now involved. Likely to require placement. I spent a total of 45 minutes coordinating, documenting, and providing care for this patient excluding time spent in the performance of separately billed services. Admission and Anticipated Discharge Date Admission Date: July 03, 2024 Supervising Physician Co-Signing Physician Notes I have seen and discussed the case with the collaborating advanced practitioner. I agree with the above H&P. I have reviewed and confirmed the patients medical history, the findings on physical examination, and the patients diagnosis and treatment plan with Santhosh ROD and agree with the information documented. continue hospice care I spent a total of 5 minutes coordinating, documenting, and providing care for this patient excluding time spent in the performance of separately billed services. All of the aforementioned completed outside of collaborating with the assigned advanced practitioner for a full treatment plan. I have reviewed the advanced practitioner's documentation, and I agree with, and take responsibility for the plan of care Subjective Seen and examined in 311. Pain slightly better controlled this morning. No acute changes overnight. No CP, SOB, N/V, abd pain, dysuria. No bowel movement since arrival. Review of Systems Review of Systems: At least ten systems reviewed and negative except as noted in the HPI. Physical Exam Physical Exam: General Appearance: WD/WN, vitals as above, appears chronically ill, frail HEENT: Normocephalic, atraumatic, conjunctivae moist, sclerae anicteric, mucous membranes moist Lung: coarse breath sounds bilaterally Heart: Regular rate, regular rhythm Abdomen: Soft, NT, ND +BS x 4 Extremities: no edema Skin: Warm, no rash Results & Data Results & Data Vital Signs (Past 12 Hours) Vital Signs O2 Del Method 07/04/24 07:45 Room Air
--- NOTE | 2024-07-05 08:05 | Hospitalist Progress Note ---
Date of Service July 05, 2024 Assessment & Plan (1) Adenocarcinoma of lower lobe of right lung: (2) Cancer related pain: (3) Hospice care patient: Plan: This is a 63yo F with a PMH of metastatic lung cancer on hospice, anxiety, depression, insomnia and other medical problems listed below who presents at the direction of hospice to optimize pain control. Adenocarcinoma of lower lobe right lung Cancer related pain In patient hospice admission [facility] hospice patient, recently transitioned to hospice within the last month once repeat scans demonstrated cancer progression Evaluated by palliative care today - poorly controlled pain on Oxy IR 10mg - increased to Oxy 15mg IR PO Q3H as needed for breakthrough pain, hold for somnolence or respiratory rate less than 14 Not finding benefit of MS Contin and does not wish to continue taking it Continue IV morphine 3mg IV Q3H for pain Augmented bowel regimen this AM (last bowel movement 07/01) CM coordinating disposition home with hospice vs placement - per discussion with CM, significant concern for return to home given inability to take medications appropriately, cockroaches in apt, and not able to make/obtain meals on a regular basis. OOA now involved. Likely to require placement. I spent a total of 45 minutes coordinating, documenting, and providing care for this patient excluding time spent in the performance of separately billed services. Admission and Anticipated Discharge Date Admission Date: July 03, 2024
[2024-07-05] MEDS: traMADol HCL 50 MG TABLET PO SCH (08:58)
--- NOTE | 2024-07-05 13:44 | Discharge Summary ---
Discharge Summary Date of Service July 05, 2024 Principal Dx & Hospital Course #1 = Principal Diagnosis (1) Adenocarcinoma of lower lobe of right lung: (2) Cancer related pain: (3) Hospice care patient: Plan Ms. Cabrera is 63yo F with a PMH of metastatic lung cancer on hospice, anxiety, depression, insomnia and other medical problems listed below who presents at the direction of hospice to optimize pain control. Patient transitioned to PO regimen with oxy 15mg q3h and tramadol scheduled, as well as addition of Cymbalta. Patient eager to go home, however, there were concerns about environment. When discussing placement, patient adamantly refused. Patient independent in activities and with sisterinlaw support. Concerns over hygiene of home raised and brought to OOA, however, this does not preclude patients right to leave to home as she does not agree with being hospitalized any longer nor does she agree to go to a "home." Adenocarcinoma of lower lobe right lung Cancer related pain In patient hospice admission [facility] hospice patient, recently transitioned to hospice within the last month once repeat scans demonstrated cancer progression Evaluated by palliative care today - poorly controlled pain on Oxy IR 10mg - increased to Oxy 15mg IR PO Q3H as needed for breakthrough pain, hold for somnolence or respiratory rate less than 14 continue oxycodone 15mg q 3 hours prn, scheduled tramadol 25mg bid. Cymbalta at bedtime Case Management involved given care concerns; however, patient with capacity at this time. OOA involved: patients legal right to leave at this time, hospice w ill visit patient at home upon discharge Notes For Next Care Provider Medication Changes From Visit -Start Cymbalta 30mg at bedtime -Start oxycodone IR 15mg every 3 hours for breakthrough pain -Start tramadol 25mg two times a day Admission HPI Per Admitting Provider This is a 63yo F with a PMH of metastatic lung cancer on hospice, anxiety, depression, insomnia and other medical problems listed below who presents at the direction of hospice to optimize pain control. She has history of history of thyroid cancer and current adenocarcinoma of the right lower lung with associated cancer pain and transitioned to comfort care with home hospice approximately 1 week ago, when she stopped her cancer directed therapy. She was initially admitted to medicine service but once care coordinated with Emigdio today are able to admit under GIP. Patient seen in room 311 earlier today and was comfortable having just received pain medication. Home pain regimen has included MS Contin Q12 as well as PRN oxycodone. No F/C, CP, SOB, N/V, abd pain, dysuria, diarrhea. Continue bowel regimen. Admission Exam Per Admitting Provider General Appearance: WD/WN, vitals as above, appears chronically ill, frail Head: normocephalic, atraumatic Eyes: normal inspection, PERRL, conjunctivae normal, anicteric sclerae ENT: external ear and nose normal, oropharynx normal, poor dentition Neck: normal visual inspection Respiratory: normal respiratory effort, diminished lung sounds with bibasilar rales Cardiovascular: regular rate, rhythm, trace BLE edema. Vessels: no JVD Chest: normal inspection of chest Abdomen/GI: normal bowel sounds, soft, nontender, no hepatosplenomegaly Extremities/Musculoskeletal: no cyanosis or clubbing, extremities motor strength 5/5 Neurologic: PERRL, EOMI, accommodation nl, no face palsy, no dysarthria, CN's II-XI intact bilaterally and moves all extremities Psychiatric: A+Ox3, euthymic affect Skin: no rashes, normal color, warm/dry Discharge Exam Constitutional thin frail, but alert and oriented x 4 Respiratory diminished in periphery but no distress Cardiovascular RRR, no murmur, no edema Gastrointestinal (Abdomen) normal bowel sounds, soft, nontender, no hepatosplenomegaly Musculoskeletal no cyanosis or clubbing, extremities motor strength 5/5 Updated Medication List Medication Instructions Recorded Confirmed Type albuterol sulfate 2.5 mg/3 mL 2.5 mg inhalation Q4H PRN 10/17/23 07/03/24 History (0.083 %) solution for nebulization Shortness Of Breath cyclobenzaprine 10 mg tablet 10 mg PO HS PRN Muscle Spasm 10/17/23 07/03/24 History famotidine 20 mg tablet (Pepcid) 20 mg PO HS 10/17/23 07/03/24 History gabapentin 300 mg capsule 300 mg PO AMHS 10/17/23 07/03/24 History levothyroxine 137 mcg capsule 137 mcg PO DAILY 10/17/23 07/03/24 History pantoprazole 40 mg tablet,delayed 40 mg PO DAILYBB 10/17/23 07/03/24 History release rizatriptan 5 mg tablet 5 mg PO Q2H PRN Migraine Headache 10/17/23 07/03/24 History lorazepam 1 mg tablet 1 mg PO DAILY PRN Anxiety 12/26/23 07/03/24 History hydroxyzine HCl 50 mg tablet 50 mg PO TID PRN Anxiety 07/02/24 07/03/24 History morphine 15 mg tablet,extended 15 mg PO Q12 07/02/24 07/03/24 History release ondansetron HCl 8 mg tablet 8 mg PO Q8 PRN Nausea 07/02/24 07/03/24 History venlafaxine 75 mg capsule,extended 75 mg PO DAILY 07/02/24 07/03/24 History release 24 hr (Effexor XR) duloxetine 30 mg capsule,delayed 30 mg PO QPM 30 days #30 caps 07/05/24 Rx release oxycodone 15 mg tablet 15 mg PO Q4H PRN pain #56 tabs 07/05/24 Rx tramadol 50 mg tablet 25 mg (1/2 x 50 mg) PO Q12 7 days 07/05/24 Rx #7 tabs Hospital Stay Data Consultations 07/03/24 16:28 Consult Palliative Care Routine Pending Results Patient Have Any Pending Studies at Discharge: No Discharge Instructions Given to Patient (Per Discharging Provider) You were admitted to inpatient hospice for poorly controlled pain related to malignancy Your pain regimen was adjusted: -Start Cymbalta 30mg at bedtime -Start oxycodone IR 15mg every 3 hours for breakthrough pain -Start tramadol 25mg two times a day Please follow up with your hospice agency for further pain management Total Time Total Time Spent Total Time Spent (In Minutes): 55
[2024-07-05] MEDS ORDERED: DULoxetine HCL 30 MG CAP PO SCH (21:00)
== END 2024-07-05 15:29 | disposition hospice, home (50) | DRG 948 ==
LOC: 3E 16:40

== ENCOUNTER 2024-09-02 08:35 | Observation (INO) ==
[2024-09-02 09:09] VITALS: TEMP 98.6
--- NOTE | 2024-09-02 09:09 | Emergency Department Note ---
Impression & Plan Acute alteration in mental status, Malignant neoplasm of lung, Right lower lobe pulmonary nodule, Adenocarcinoma of lower lobe of right lung, Cancer related pain, Weakness generalized, Elevated troponin I level ED Provider Note NAME: YANELI PITTMAN AGE: 63 SEX: F : 1960 ARRIVES VIA: Ambulance INFORMANT: Patient, ED PROVIDER(S): Silverio Leonard DO CHIEF COMPLAINT: Altered mental status HPI: The patient is a 63-year-old female who presented to the emergency department for an evaluation of altered mental status. The patient is end-stage hospice for advanced adenocarcinoma of the lung which is widely metastatic. The patient was found on the floor today. There was concerns that the patient may have injured herself. The family member found her on the floor and called the hospice nurse who recommended she come to the emergency department immediately. Reportedly the patient stopped breathing multiple times prior to coming to the emergency department. She was placed on supplemental oxygen. ROS: See above HPI for pertinent positives & negatives. A total of 10 systems reviewed and were otherwise negative. PAST MEDICAL HISTORY: See Below PAST SURGICAL HISTORY: See Below FAMILY HISTORY: See Below SOCIAL HISTORY: See Below HOME MEDICATIONS: See Below ALLERGIES: See Below VITALS: See Below PHYSICAL EXAMINATION: GENERAL: The patient is listless and does not respond to questions. EYES: A prosthetic eye was noted in the right eye socket. The left eye reveals a mid sized pupil which is reactive. EARS, NOSE, MOUTH AND THROAT: The nose is without any evidence of any deformity. Mucous membranes are dry. NECK: The neck is nontender and supple. RESPIRATORY: She respirations were noted. CARDIOVASCULAR: Regular rate and rhythm noted there no murmurs rubs or gallops normal S1 normal S2. GASTROINTESTINAL: The abdomen is soft. Abdomen is nontender. MUSCULOSKELETAL/EXTREMITIES: There is no evidence of gross deformity full range of motion is noted in the hips and shoulders. SKIN: No edema was noted bilaterally. Skin was warm and dry. NEUROLOGIC: The patient did not answer questions. I am unable to assess orientation at this time. The patient does not follow commands. MEDICAL DECISION MAKING: The patient is a 63-year-old female who presented to the emergency department after being found on the floor. The patient has a history of end-stage lung cancer with metastatic disease. She is manage at home with pain medication. The patient was found by family member on the floor. The patient was sent to the emergency department for further evaluation. The patient was not completely responsive. I discussed her condition with the [facility]ist group. They have agreed to evaluate the patient in the emergency department for further management and disposition. Triage Nursing notes reviewed. Prior medical records reviewed Vital Signs: reviewed and remarkable for no significant abnormalities Differential diagnosis: Infection, hypoglycemia, electrolyte abnormalities, overdose, toxicologic, cardiac sources, intracerebral event, neurologic, trauma, as well as other pathologies. ER treatment provided: See below Diagnostics interpreted by me: ECG: EKG was obtained in the emergency department. My interpretation is normal sinus rhythm at 96 bpm. There were no PVCs noted. Nonspecific ST and T wave abnormalities were noted. Early transition was also noted. This was compared to a tracing from January 14, 2018. The ST and T wave abnormalities are new compared to the previous tracing. Cardiac Monitoring: An order was placed for continuous cardiac monitoring. The monitor shows a rate of 85 bpm with sinus rhythm. Laboratory studies: As stated above and show below. Imaging studies: See below. Radiographic imaging was reviewed by myself Consultation(s): I discussed this case with Purvi who is on-call for the [facility] hospitalist group. Past Med/Surg History Problem List Elevated troponin I level (Acute) Acute alteration in mental status (Acute) Hospice care patient (Acute) Palliative care by specialist Advanced care planning/counseling discussion Weakness generalized (Acute) Cancer related pain (Acute) Headache Blurred vision Adenocarcinoma of lower lobe of right lung (Chronic 05/02/23) Right lower lobe pulmonary nodule (Acute) Malignant neoplasm of lung (Acute) Biopsy on 04/10/23 History of bronchoscopy 04/10/23 Medical History Thyroid cancer Migraines Lumbar stenosis Hypothyroidism Hyperlipidemia Arthritis Scoliosis Iron deficiency anemia GERD (gastroesophageal reflux disease) Blindness of right eye CVA (cerebral vascular accident) Anxiety Depression Degenerative disc disease, lumbar Chronic low back pain Breast cancer, right Chronic kidney disease Vitreous degeneration Glaucoma Central corneal ulcer Surgical History 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 Mother No problems noted. Brother No problems noted. Brother No problems noted. Brother No problems noted. Sister No problems noted. Son No problems noted. Grandfather (Maternal) Colorectal cancer Grandmother (Paternal) Colorectal cancer tumor in stomache Social History Smoking Status: Unknown if ever smoked Tobacco Type: Cigarettes Cigarettes Per Day: 1 pack per day, patient reports she is working on cessation; Second Hand Exposure: No; Do You Dip or Chew Tobacco: No; Hx Alcohol Use: No Hx Substance Use: Yes Preferred Language: Congolese Communication Ability: Effective Visual Impairment: Limited Hearing Ability: Normal Teenage Babysitter Required: No Beliefs That Will Affect Care: None Current Living Situation: Alone How many Children do You have: 1 Feels Safe at Home: Yes Childhood Exposure to Second-Hand Smoke: No Diet: regular during the past year weight has: decreased > 10 lbs Assistive Devices: None Allergies Allergies Allergy/AdvReac Type Severity Reaction Status Date / Time sulfamethoxazole AdvReac hand Verified 01/28/24 11:13 [From Bactrim] swelling trimethoprim [From Bactrim] AdvReac hand Verified 01/28/24 11:13 swelling Home Meds Home Medications Medication Instructions Recorded Confirmed albuterol sulfate 2.5 mg/3 mL 2.5 mg inhalation UD PRN Shortness 10/17/23 09/02/24 (0.083 %) solution for nebulization Of Breath cyclobenzaprine 10 mg tablet 10 mg PO HS PRN Muscle Spasm 10/17/23 09/02/24 famotidine 20 mg tablet (Pepcid) 20 mg PO HS 10/17/23 09/02/24 gabapentin 300 mg capsule 300 mg PO AMHS 10/17/23 09/02/24 levothyroxine 137 mcg capsule 137 mcg PO DAILY 10/17/23 09/02/24 pantoprazole 40 mg tablet,delayed 40 mg PO DAILYBB 10/17/23 09/02/24 release rizatriptan 5 mg tablet 5 mg PO UD PRN Migraine Headache 10/17/23 09/02/24 lorazepam 1 mg tablet 1 mg PO UD PRN Anxiety 12/26/23 09/02/24 hydroxyzine HCl 50 mg tablet 50 mg PO UD PRN Anxiety 07/02/24 09/02/24 morphine 15 mg tablet,extended 15 mg PO Q12 07/02/24 09/02/24 release ondansetron HCl 8 mg tablet 8 mg PO UD PRN Nausea 07/02/24 09/02/24 venlafaxine 75 mg capsule,extended 75 mg PO DAILY 07/02/24 09/02/24 release 24 hr (Effexor XR) albuterol sulfate 90 mcg/actuation 1 puff inhalation .Q4-6H PRN 09/02/24 09/02/24 aerosol inhaler sob/wheezing oxycodone 15 mg tablet 10 mg PO Q4H PRN pain 09/02/24 09/02/24 Results & Data (ED) Vital Signs Vital Signs - 24 hr 09/02/24 08:42 09/02/24 08:50 09/02/24 09:24 Temperature 37.0 C Temperature Source Axillary Pulse Rate 98 H 85 Pulse Rhythm Regular Pulse Strength Normal Respiratory Rate 16 Respiratory Effort / Characteristics Non-Labored Spontaneous Respiratory Depth Normal Blood Pressure 114/83 Blood Pressure Mean 93 Blood Pressure Position Lying Pulse Oximetry 98 Oxygen Delivery Method Nasal Cannula Nasal Cannula Oxygen Flow Rate 2 2 Sepsis Recent Fever Within 48 Hours No Sepsis New/Unexplained Change in Mental Status N/A Sepsis Action Taken by Nursing No Action Required Home Medications Current Medication List: was personally reviewed by me Laboratory Data Attestation: I reviewed the patient's lab results. 09/02/24 09:05 09/02/24 09:05 Lab Results 09/02/24 Range/Units 09:05 PT 17.5 H (9.0-12.0) Seconds INR 1.7 H (0.9-1.1) APTT 37 H (21-31) Seconds PTT Ratio 1.4 VBG pH 7.42 H (7.36-7.41) VBG pCO2 46 (38-50) mmHg VBG pO2 34 mmHg VBG HCO3 30 mmol/L VBG O2 Saturation < 60.0 % VBG Base Excess 4.7 mEq/L Sodium 137 (136-145) mmol/L Potassium 3.7 (3.5-5.1) mmol/L Chloride 96 L (98-107) mmol/L Carbon Dioxide 30 (21-32) mmol/L Anion Gap 11 (3-11) BUN 41 H (6-23) mg/dl Creatinine 1.51 H (0.6-1.2) mg/dl Est Cr Clr Drug Dosing 25.5 ml/min eGFR 38.37 BUN/Creatinine Ratio 27.2 H (10-20) Glucose 114 H (70-99(Fasting)) mg/dl Calcium 8.6 (8.6-10.3) mg/dl Imaging Data Attestation: I personally reviewed and interpreted this imaging study as follows: My Impression: 1 view chest x-ray was obtained in the emergency department. My interpretation is no free air, mass noted in the right lung field, final report below. Radiologist's Impression: Chest X-Ray 09/02/24 08:53 XR chest 1V portable CLINICAL HISTORY: Chest pain, nonspecific TECHNIQUE: Single frontal radiograph of the chest was obtained. Comparison: Comparison is made to PET/CT 06/05/2024 FINDINGS: No lines and tubes are seen. Calcified aortic knob is seen. Right lower lung airspace opacity is again seen. No evidence of pleural effusion or pneumothorax. IMPRESSION: No new acute abnormalities are seen. The right lower lobe airspace opacity, which was also noted on prior PET/CT, may represent treatment related changes versus pneumonia/aspiration. ACT 112: Negative or not required by law. Electronically signed by: Shaun Oquendo M.D. 09/02/2024 9:39 AM Discharge Plan Visit Data Chief Complaint: Unresponsive Stated Complaint: UNRESP., POSS PLACEMENT, END OF CARE STABLIZATION ED Provider: Silverio Leonard Discharge Problem: Acute alteration in mental status, Malignant neoplasm of lung, Right lower lobe pulmonary nodule, Adenocarcinoma of lower lobe of right lung, Cancer related pain, Weakness generalized, Elevated troponin I level Patient Disposition: Being Evaluated by Hospitalist Forms Stand Alone Forms: [facility] Prescriptions Prescriptions: No Action levothyroxine 137 mcg capsule 137 mcg PO DAILY pantoprazole 40 mg tablet,delayed release (DR/EC) 40 mg PO DAILYBB famotidine [Pepcid] 20 mg tablet 20 mg PO HS rizatriptan 5 mg tablet 5 mg PO UD PRN (Reason: Migraine Headache) Rx Instructions: 5 mg po q2h prn. not on list faxed from pharmacy. do not exceed 6 doses per 24 hrs cyclobenzaprine 10 mg tablet 10 mg PO HS PRN (Reason: Muscle Spasm) gabapentin 300 mg capsule 300 mg PO AMHS albuterol sulfate 2.5 mg /3 mL (0.083 %) solution for nebulization 2.5 mg inhalation UD PRN (Reason: Shortness Of Breath) Rx Instructions: 2.5 mg inhal q4h prn. not on list faxed from pharmacy. lorazepam 1 mg tablet 1 mg PO UD PRN (Reason: Anxiety) Rx Instructions: 1 mg po daily prn. not on list faxed from pharmacy. albuterol sulfate 90 mcg/actuation HFA aerosol inhaler 1 puff INHALATION .Q4-6H PRN (Reason: sob/wheezing) oxycodone 15 mg tablet 10 mg PO Q4H PRN (Reason: pain) morphine 15 mg tablet extended release 15 mg PO Q12 hydroxyzine HCl 50 mg tablet 50 mg PO UD PRN (Reason: Anxiety) Rx Instructions: 50 mg po tid prn. not on list faxed from pharmacy. ondansetron HCl 8 mg tablet 8 mg PO UD PRN (Reason: Nausea) Rx Instructions: 8 mg po q8h prn. not on list faxed from pharmacy. venlafaxine [Effexor XR] 75 mg Capsule,Extended Release 24hr 75 mg PO DAILY Referrals Referrals: Wendie Ordoñez MD [Primary Care Provider] - Discharge Problem: Malignant neoplasm of lung Qualifiers: Laterality: right Lung location: unspecified part of lung Qualified Code(s): C 34.91 - Malignant neoplasm of unspecified part of right bronchus or lung
[2024-09-02 09:15] LABS: Base Excess VBG 4.7 mEq/L; HCO3 VBG 30 mmol/L; Oxygen Saturation VBG < 60.0 %; PCO2 VBG 46 mmHg (38-50); PO2 VBG 34 mmHg; pH VBG 7.42 (7.36-7.41)
--- NOTE | 2024-09-02 09:40 | XRay Report ---
XR chest 1V portable CLINICAL HISTORY: Chest pain, nonspecific TECHNIQUE: Single frontal radiograph of the chest was obtained. Comparison: Comparison is made to PET/CT 06/05/2024 FINDINGS: No lines and tubes are seen. Calcified aortic knob is seen. Right lower lung airspace opacity is agai n seen. No evidence of pleural effusion or pneumothorax. IMPRESSION: No new acute abnormalities are seen. The right lower lobe airspace opacity, which was also noted on p rior PET/CT, may represent treatment related changes versus pneumonia/aspiration. ACT 112: Negative or not required by law. Electronically signed by: Shaun Oquendo M.D. 09/02/2024 9:39 AM
[2024-09-02 09:49] LABS: INR 1.7 (0.9-1.1); Partial Thromboplastin Ratio 1.4; Partial Thromboplastin Time 37 Seconds (21-31); Prothrombin Time 17.5 Seconds (9.0-12.0)
--- NOTE | 2024-09-02 09:52 | History & Physical Report ---
Date of Service September 02, 2024 Assessment & Plan (1) Acute alteration in mental status: (2) Hospice care patient: (3) Cancer related pain: (4) Malignant neoplasm of lung: (5) Adenocarcinoma of lower lobe of right lung: Plan Assessment and plan: Altered mental status Metastatic lung cancer Severe chronic pain Previously on chemo in January 2024, transitioned to comfort care in June 2024 Hospice has been following and seeing the patient 2 times a week Gopntd-zq-xge reports rapid decline, requesting comfort measures only/more support at home Consult palliative care, initiate comfort measuresmorphine for pain/Ativan for anxiety Consider home hospice versus SNF on DC Hx anxiety/depression/hypothyroidism/GERD Unable to tolerate p.o. at this time, hold home medications A total of 60 minutes was spent on chart review/facilitating plan of care/discussion with consultants/reviewing diagnostic data Patient is a DNR/DNIpursuing comfort measures only DVT prophylaxis: SCDs, no AC with comfort measures History of Present Illness Chief Complaint: Altered mental status Primary Care Provider: Wendie Ordoñez MD The patient is a 63-year-old female with a past medical history of anxiety, depression, insomnia, metastatic lung cancer who has been on hospice for approximately 2 months. The patient's fqnqig-tm-jkp is at bedside and reports that she found the patient unresponsive and down on the floor in her home. Hospice nursing has been following and follows with the patient about 2 times a week. The patient has been able to walk to the bathroom over the past week and is usually able to get around by herself. This Istalol reports that over the past 24 hours there has been a severe decline in her mentation. When she found her hdsmpl-pt-mdw unresponsive, she called the hospice nurse and was directed to call 911. On exam, the patient is lethargic and opens her eyes but does not follow commands or respond back to her name being called. She remains on 2 L of oxygen. She does not appear in any distress at this time. she does respond to painful stimuli. ROS difficult to complete due to mentation. Awrmjb-xw-lvx at bedside and advanced directives are discussed. The patient and the bhjajc-gb-ijv would like to only pursue comfort measures at this time. The sfsvtq-yz-ivq's concern with the amount of help that the patient has at home and is interested in either 24-hour care or possible prison facility on discharge. The patient jcwlbw-qy-xrc is requesting no invasive treatment, no antibiotics, no IV fluids, she would just like the patient to be kept comfortable at this point. The patient will be admitted for further management and palliative care/hospice will be consulted Allergies Allergy/AdvReac Type Severity Reaction Status Date / Time sulfamethoxazole AdvReac hand Verified 01/28/24 11:13 [From Bactrim] swelling trimethoprim [From Bactrim] AdvReac hand Verified 01/28/24 11:13 swelling Home Medications Medication Instructions Recorded Confirmed Type albuterol sulfate 2.5 mg/3 mL 2.5 mg inhalation UD PRN Shortness 10/17/23 09/02/24 History (0.083 %) solution for nebulization Of Breath cyclobenzaprine 10 mg tablet 10 mg PO HS PRN Muscle Spasm 10/17/23 09/02/24 History famotidine 20 mg tablet (Pepcid) 20 mg PO HS 10/17/23 09/02/24 History gabapentin 300 mg capsule 300 mg PO AMHS 10/17/23 09/02/24 History levothyroxine 137 mcg capsule 137 mcg PO DAILY 10/17/23 09/02/24 History pantoprazole 40 mg tablet,delayed 40 mg PO DAILYBB 10/17/23 09/02/24 History release rizatriptan 5 mg tablet 5 mg PO UD PRN Migraine Headache 10/17/23 09/02/24 History lorazepam 1 mg tablet 1 mg PO UD PRN Anxiety 12/26/23 09/02/24 History hydroxyzine HCl 50 mg tablet 50 mg PO UD PRN Anxiety 07/02/24 09/02/24 History morphine 15 mg tablet,extended 15 mg PO Q12 07/02/24 09/02/24 History release ondansetron HCl 8 mg tablet 8 mg PO UD PRN Nausea 07/02/24 09/02/24 History venlafaxine 75 mg capsule,extended 75 mg PO DAILY 07/02/24 09/02/24 History release 24 hr (Effexor XR) albuterol sulfate 90 mcg/actuation 1 puff inhalation .Q4-6H PRN 09/02/24 09/02/24 History aerosol inhaler sob/wheezing oxycodone 15 mg tablet 10 mg PO Q4H PRN pain 09/02/24 09/02/24 History Past Med/Surg History Problem List Elevated troponin I level (Acute) Acute alteration in mental status (Acute) Hospice care patient (Acute) Palliative care by specialist Advanced care planning/counseling discussion Weakness generalized (Acute) Cancer related pain (Acute) Headache Blurred vision Adenocarcinoma of lower lobe of right lung (Chronic 05/02/23) Right lower lobe pulmonary nodule (Acute) Malignant neoplasm of lung (Acute) Biopsy on 04/10/23 History of bronchoscopy 04/10/23 Medical History Thyroid cancer Migraines Lumbar stenosis Hypothyroidism Hyperlipidemia Arthritis Scoliosis Iron deficiency anemia GERD (gastroesophageal reflux disease) Blindness of right eye CVA (cerebral vascular accident) Anxiety Depression Degenerative disc disease, lumbar Chronic low back pain Breast cancer, right Chronic kidney disease Vitreous degeneration Glaucoma Central corneal ulcer Surgical History 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 Mother No problems noted. Brother No problems noted. Brother No problems noted. Brother No problems noted. Sister No problems noted. Son No problems noted. Grandfather (Maternal) Colorectal cancer Grandmother (Paternal) Colorectal cancer tumor in stomache Social History Smoking Status: Unknown if ever smoked Tobacco Type: Cigarettes Cigarettes Per Day: 1 pack per day, patient reports she is working on cessation; Second Hand Exposure: No; Do You Dip or Chew Tobacco: No; Hx Alcohol Use: No Hx Substance Use: Yes Preferred Language: Frisian Communication Ability: Effective Visual Impairment: Limited Hearing Ability: Normal Paraprofessional Aide Teacher Required: No Beliefs That Will Affect Care: None Current Living Situation: Alone How many Children do You have: 1 Feels Safe at Home: Yes Childhood Exposure to Second-Hand Smoke: No Diet: regular during the past year weight has: decreased > 10 lbs Assistive Devices: None Review of Systems Review of Systems: All systems reviewed & are unremarkable except as noted in HPI & below Physical Exam Constitutional: WD/WN, vitals as above + ill appearing, + thin, + cachectic and + altered mental status; + not well nourished Eyes: PERRL, conjunctivae normal, anicteric sclerae ENMT: external ear and nose normal, oropharynx normal Neck: trachea midline, no thyromegaly Respiratory: + labored breathing and + dullness to pe rcussion; no respiratory distress and does not use accessory muscles Cardiovascular: RRR, no murmur, no edema (+3 bilateral lower extremity pitting edema) Rate/Rhythm: regular rate Gastrointestinal (Abdomen): normal bowel sounds, soft, nontender, no hepatosplenomegaly Musculoskeletal: no cyanosis or clubbing, extremities motor strength 5/5 (Passive ROM, generalized muscle weakness) Skin: no rashes, warm and dry Neurologic: PERRL, EOMI, accommodation nl, no face palsy, no dysarthria Lymphatic: no cervical or axillary lymphadenopathy Results & Data Results & Data Vital Signs (Past 12 Hours) Vital Signs Temp Pulse Resp BP Pulse Ox O2 Del Method O2 Flow Rate 09/02/24 09:24 Nasal Cannula 2 09/02/24 08:50 37.0 C 85 16 114/83 98 Nasal Cannula 2 09/02/24 08:42 98 H Diagnostic Findings Laboratory Results WBC 18.13 K/ul (4.8-10.8) H 09/02/24 09:05 RBC 3.83 M/uL (4.20-5.40) L 09/02/24 09:05 Hgb 10.3 g/dl (12.0-16.0) L 09/02/24 09:05 Hct 32.4 % (37.0-47.0) L 09/02/24 09:05 MCV 84.6 fL (80.0-100.0) 09/02/24 09:05 MCH 26.9 pg (25.0-34.0) 09/02/24 09:05 MCHC 31.8 g/dL (32.0-36.0) L 09/02/24 09:05 RDW Std Deviation 54.2 fL (36.4-46.3) H 09/02/24 09:05 RDW Coeff of Chely 18.6 % (11.5-14.5) H 09/02/24 09:05 Plt Count 33 K/uL (130-400) L 09/02/24 09:05 Absolute Nucleated RBC 0.20 K/uL (0.00-0.12) H 09/02/24 09:05 Nucleated RBC % (auto) 1.1 % 09/02/24 09:05 PT 17.5 Seconds (9.0-12.0) H 09/02/24 09:05 INR 1.7 (0.9-1.1) H 09/02/24 09:05 APTT 37 Seconds (21-31) H 09/02/24 09:05 PTT Ratio 1.4 09/02/24 09:05 VBG pH 7.42 (7.36-7.41) H 09/02/24 09:05 VBG pCO2 46 mmHg (38-50) 09/02/24 09:05 VBG pO2 34 mmHg 09/02/24 09:05 VBG HCO3 30 mmol/L 09/02/24 09:05 VBG O2 Saturation < 60.0 % 09/02/24 09:05 VBG Base Excess 4.7 mEq/L 09/02/24 09:05 Sodium 137 mmol/L (136-145) 09/02/24 09:05 Potassium 3.7 mmol/L (3.5-5.1) 09/02/24 09:05 Chloride 96 mmol/L (98-107) L 09/02/24 09:05 Carbon Dioxide 30 mmol/L (21-32) 09/02/24 09:05 Anion Gap 11 (3-11) 09/02/24 09:05 BUN 41 mg/dl (6-23) H 09/02/24 09:05 Creatinine 1.51 mg/dl (0.6-1.2) H 09/02/24 09:05 Est Cr Clr Drug Dosing 25.5 ml/min 09/02/24 09:05 eGFR 38.37 09/02/24 09:05 BUN/Creatinine Ratio 27.2 (10-20) H 09/02/24 09:05 Glucose 114 mg/dl (70-99(Fasting)) H 09/02/24 09:05 Calcium 8.6 mg/dl (8.6-10.3) 09/02/24 09:05 Total Bilirubin 1.1 mg/dl (0.2-1.0) H 09/02/24 09:05 AST 276 U/L (13-39) H 09/02/24 09:05 ALT 89 U/L (7-52) H 09/02/24 09:05 Alkaline Phosphatase 379 U/L (34-104) H 09/02/24 09:05 Troponin I High Sens 221.1 pg/ml (0-14) H* 09/02/24 09:05 Total Protein 5.6 gm/dl (6.0-8.3) L 09/02/24 09:05 Albumin 2.3 gm/dl (3.4-5.0) L 09/02/24 09:05 Globulin 3.3 gm/dl (2.5-4.0) 09/02/24 09:05 Albumin/Globulin Ratio 0.7 (0.9-2) L 09/02/24 09:05 Lipase < 3 U/L (11-82) L 09/02/24 09:05 Impressions Chest X-Ray 09/02/24 08:53 XR chest 1V portable CLINICAL HISTORY: Chest pain, nonspecific TECHNIQUE: Single frontal radiograph of the chest was obtained. Comparison: Comparison is made to PET/CT 06/05/2024 FINDINGS: No lines and tubes are seen. Calcified aortic knob is seen. Right lower lung airspace opacity is again seen. No evidence of pleural effusion or pneumothorax. IMPRESSION: No new acute abnormalities are seen. The right lower lobe airspace opacity, which was also noted on prior PET/CT, may represent treatment related changes versus pneumonia/aspiration. ACT 112: Negative or not required by law. Electronically signed by: Shaun Oquendo M.D. 09/02/2024 9:39 AM Code Status & VTE Plan VTE Prophylaxis Plan VTE Prophylaxis will be ordered: No Reason for no VTE drug order: Drug declined by patient Supervising Physician Co-Signing Physician Notes 63-year-old female with PMH of metastatic lung cancer, anxiety, depression who has been on hospice for approximately 2 months was brought in by eifrxc-eh-otr because she was found unresponsive and down on the floor in her home. Apiima-nm-izx states that she does not have much support at home and [facility] is not able to provide her with enough support that she needs at this stage in her life, hence she brought the patient to the hospital, wants to continue with hospice/comfort measures, does not want any interventions or labs or monitoring of heart, would like her be discharged to facility w/ hospice or to home with 24-hour care/hospice if possible. Labs and imagings reviewed, per patient's prior wishes and per patient's ygahop-pq-wfx, they do not want any interventions or active treatment or heart monitoring or any further blood draws. Metastatic lung cancer and metabolic encephalopathy: comfort measures instituted, palliative care consult. Severe malnutrition: Secondary to underlying malignancy. Liberalize diet as able. On exam: GENERAL: Drowsy, lethargic, appears ill/frail/sick/cachectic, On 2 L oxygen via nasal cannula HEENT: oral mucosa dry NECK: No JVD, no neck masses. HEART: S1 and S2 heard. Regular rate and rhythm. heart rate in 90s. No murmur, no gallop. RESPIRATORY SYSTEM: Normal AP diameter. No accessory muscle use. No wheezing, Decreased breath sounds secondary to poor effort. ABDOMEN: Soft, Scaphoid appearing, no distention. CENTRAL NERVOUS SYSTEM: drowsy, lethargic, cannot follow commands, appears resting comfortably. EXTREMITIES: 2-3+ BLE edema, no erythema seen. I have seen and examined the patient and have discussed the case with the provider above. I agree with the assessment and plan as stated. Time spent: 20 min (4) Malignant neoplasm of lung Laterality: right Lung location: unspecified part of lung Qualified Code(s): C34.91 - Malignant neoplasm of unspecified part of right bronchus or lung
[2024-09-02 09:54] LABS: Anion Gap 11 (3-11); BUN Creatinine Ratio 27.2 (10-20); Blood Urea Nitrogen 41 mg/dl (6-23); Calcium 8.6 mg/dl (8.6-10.3); Carbon Dioxide 30 mmol/L (21-32); Chloride 96 mmol/L (98-107); Creatinine Clr Calc Pharmacy 25.5 ml/min; Glucose 114 mg/dl (70-99(Fasting)); Potassium 3.7 mmol/L (3.5-5.1); Sodium 137 mmol/L (136-145)
[2024-09-02 10:07] LABS: Alanine Aminotransferase 89 U/L (7-52); Albumin Globulin Ratio 0.7 (0.9-2); Albumin Level 2.3 gm/dl (3.4-5.0); Alkaline Phosphatase 379 U/L (34-104); Aspartate Aminotransferase 276 U/L (13-39); Bilirubin,Total 1.1 mg/dl (0.2-1.0); Globulin 3.3 gm/dl (2.5-4.0); Hematocrit (blood only) 32.4 % (37.0-47.0); Hemoglobin 10.3 g/dl (12.0-16.0); Lipase < 3 U/L (11-82); Mean Corpuscular Hemoglobin 26.9 pg (25.0-34.0); Mean Corpuscular Hgb Conc 31.8 g/dL (32.0-36.0); Mean Corpuscular Volume 84.6 fL (80.0-100.0); Nucleated RBC % (auto) 1.1 %; Platelet Count 33 K/uL (130-400); RDW Coefficient of Variation 18.6 % (11.5-14.5); RDW Standard Deviation 54.2 fL (36.4-46.3); Red Blood Count 3.83 M/uL (4.20-5.40); Total Protein 5.6 gm/dl (6.0-8.3); Troponin I High Sensitivity 221.1 pg/ml (0-14); White Blood Count 18.13 K/ul (4.8-10.8)
[2024-09-02 10:31] LABS: Basophils # (auto) 0.07 K/uL (0.00-0.20); Basophils % (auto) 0.4 %; Eosinophils # (auto) 0.08 K/uL (0.00-0.50); Eosinophils % (auto) 0.4 %; Immature Granulocytes # (auto) 0.71 K/uL (0.01-0.20); Immature Granulocytes % (auto) 3.9 %; Lymphocytes # (auto) 1.13 K/uL (1.20-3.40); Lymphocytes % (auto) 6.2 %; Monocytes # (auto) 1.02 K/uL (0.11-0.59); Monocytes % (auto) 5.6 %; Neutrophils # (auto) 15.12 K/uL (1.40-6.50); Neutrophils % (auto) 83.5 %; Polychromasia 1+; Toxic Vacuolation 1+
[2024-09-02 11:57] VITALS: PULSE 96
[2024-09-02] MEDS ORDERED: ONDANSETRON 4 MG OD TAB SL PRN (12:40)
[2024-09-02] MEDS ORDERED: HYOSCYAMINE SULFATE 0.125 MG TAB SL PRN (12:40)
[2024-09-02] MEDS ORDERED: ATROPINE SULFATE 1% OP SOLN 5 ML BTL SL PRN (12:40)
[2024-09-02] MEDS ORDERED: ONDANSETRON INJ 2 MG/ML 2 ML VIAL IV PRN (12:40)
[2024-09-02] MEDS ORDERED: ACETAMINOPHEN 325 MG TAB PO PRN (12:40)
[2024-09-02] MEDS ORDERED: LORazepam 0.5 MG TAB PO PRN (12:40)
[2024-09-02 12:45] VITALS: BP 102/69; RESP 18; O2SAT 96
--- NOTE | 2024-09-02 13:43 | Electrocardiogram Report ---
Test Reason : Blood Pressure : */* mmHG Vent. Rate : 96 BPM Atrial Rate : 96 BPM P-R Int : 152 ms QRS Dur : 82 ms QT Int : 372 ms P-R-T Axes : -2 -7 -7 degrees QTcB Int : 469 ms Normal sinus rhythm Diffuse Minor Nonspecific T wave abnormality Abnormal ECG When compared with ECG of 21-Jan-2018 15:05, Nonspecific T wave abnormality now present Confirmed by Leonardo Block ([id number]) on 09/02/2024 1:43:15 PM Referred By: REFERRED SELF Confirmed By: Leonardo Block
[2024-09-02] MEDS: MoRPHine SULFATE 2 MG/ML CARP IV PRN (14:00)
[2024-09-02] MEDS: MoRPHine SULFATE 10 MG/0.5 ML UDP PO PRN (16:30)
[2024-09-02] MEDS: LORazepam 2 MG/1 ML VIAL IV PRN (20:56)
--- OUTSIDE RECORDS SUMMARY | 2024-09-03 03:27 | External Medical Summary | Summary of Care ---
Author Name Unknown Organization [facility] Address [address] [place] [address] Phone [phone] Care Team Providers Care Commercial Lending Vice President Name Role Phone Wendie Ordoñez MD Primary Care Provide r Encounter Details Date Type Department Care Team ([facility] st Contact Info) Description 07/30/2024 Documentation Eyewear [facility] [address] [place] [id number] [facility] Eyear Bitely [address] [place] [address] Allergies Active Allergy Reactions Criticality Noted Date Comments Sulfamethoxazole-Trimethoprim 2021 documented as of this encounter (statuses as of 07/30/2024) Medications Medication Sig Dispensed Refills Start Date [...] as of this encounter (statuses as of 07/30/2024) Active Problems Problem Noted Date Diagnosed Date [...] as of this encounter (statuses as of 07/30/2024) Resolved Problems Problem Noted Date Diagnosed Date Resolved Date 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 03/31/2022 02/23/2023 Nuclear senile cataract 07/18/2011 07/0 04/2022 documented as of this encounter (statuses as of 07/30/2024) Social History Tobacco Use Types Packs/Day Years [...] on file documented as of this encounter Progress Notes * Valentin Dominguez TECH - 07/30/2024 9:01 AM EST Dispensed by: yomi Final checked by: yomi Dispenser notes: documented in this encounter Plan of Treatment [...] PCV) 04/03/2015 04/03/2014 CKD PHOS USE SMARTSET 34345 11/07/2023 11/07/2022 GFR 02/28/2024 08/29/2023, 07/25, 11/07/2022, Additional history exists Influenza Vaccine (FLU shot) (#1) 2024 12/09/2020 CKD HGB USE SMARTSET 45941 08/29/202408/29, 11/07/2022, 11/07/2022, Additional history exists TSH [...] Documents on File Type Date Recorded Patient Coarse Wire Drawer Expl anation POLST 06/07/2023 2:29 PM POLST (Miah ited DNR) Advance Directives and Living Will 10/10/2010 Power of Clinical Advisor 10/03/2010 * Full Code (Latest Code Status [...] and were consensually agreed upon. Care Teams Commercial Lending Vice President Relationship Specialty Start Date End Date Wendie Ordoñez MD [address] [place] [address] APRIL Alan [phone] PCP - General Family Medicine 07/17/22 documented as of this encounter
--- OUTSIDE RECORDS SUMMARY | 2024-09-03 03:27 | External Medical Summary | Summary of Care ---
Author Name Unknown Organization [facility] Address [address] [place] [address] Phone [phone] Care Team Providers Care Diesel Tractor Engine Mechanic Name Role Phone Wendie Ordoñez MD Primary Care Provide r Reason for Visit * Reason Comments eRx-Medication Refill Encounter Details Date Type Department Care Team (Late st Contact Info) Description 08/07/2024 Refill Family Medicine [address] [id number] Wendie Ordoñez MD [address] [place], [place] [address]APRIL [phone] Acquired hypothyroidism; Gastroesophageal reflux disease with esophagitis without hemorrhage Allergies Active Allergy Reactions Criticality Noted Date Comments Sulfamethoxazole-Trimethoprim 2021 documented as of this encounter (statuses as of 08/11/2024) Medications Aspirin EC 81 MG Oral Tablet Delayed ReleaseIndication s:History of CVA (cerebrovascular accident) Take by mouth 1 Tablet in the morning. 100 Tablet 3 022 Active Atorvastatin Calcium 40 MG Oral Tablet (Lipitor)Indicati ons:Dyslipidemia, goal LDL below 130 TAKE ONE TABLET BY MOUTH EVERY MORNING 90 Tablet 1 023 Active Additional Information Patient not taking.Reported on 06/06/2023 oxyCODONE HCl 5 MG Oral Tablet Abuse-Deterrent Take 5 mg by mouth every 4 hours as needed for Pain, Severe. Active Furosemide 20 MG Oral Tablet (Lasix)Indication s:Leg swelling Take 1 Tablet by mouth daily as needed (leg swelling). 30 Tablet 2 023 Active FLUoxetine HCl 20 MG Oral Capsule (PROzac)Indicatio ns:Anxiety,Curren t mild episode of major depressive disorder without prior episode (HCC) Take 1 Capsule by mouth in the morning. 90 Capsule 2 024 Active Meloxicam 7.5 MG Oral Tablet (Mobic)Indication s:Chronic bilateral low back pain without sciatica TAKE ONE TABLET BY MOUTH IN THE MORNING FOR PAIN 30 Tablet 11 024 Active hydrOXYzine HCl 50 MG Oral TabletIndications :Anxiety Take 1 Tablet by mouth 3 times a day as needed for Anxiety. 40 Tablet 1 024 Active Rizatriptan Benzoate 5 MG Oral TabletIndications :Migraine variant Take 1 Tablet by mouth as needed for Migraine. May repeat in 2 hours if needed. Maximum 30mg in 24 hours 10 Tablet 3 024 Active Famotidine 20 MG Oral Tablet (Pepcid)Indicatio ns:Gastroesophage al reflux disease with esophagitis without hemorrhage TAKE ONE TABLET BY MOUTH AT BEDTIME 90 Tablet 1 024 Active Cyclobenzaprine HCl 10 MG Oral Tablet (Flexeril)Indicat ions:DDD (degenerative disc disease), lumbar,Chronic bilateral low back pain without sciatica Take 1 Tablet by mouth at bedtime as needed for Pain or Muscle spasms. 30 Tablet 3 024 Active Pantoprazole Sodium 40 MG Oral Tablet Delayed Release (Protonix)Indicat ions:Gastroesopha geal reflux disease with esophagitis without hemorrhage Take 1 Tablet by mouth in the morning. 30 minutes before the first meal of the day. Do not crush, split or chew the tablet. 90 Tablet 1 024 Active Gabapentin 300 MG Oral Capsule (Neurontin)Indica tions:DDD (degenerative disc disease), lumbar,Chronic bilateral low back pain without sciatica Take 1 Capsule by mouth in the morning and 1 Capsule before bedtime. 180 Capsule 1 024 Active Levothyroxine Sodium 137 MCG Oral TabletIndications :Acquired hypothyroidism TAKE ONE TABLET by MOUTH IN THE morning. (AT least 30 MINUTES prior TO breakfast OR other meds) 90 Tablet 11/18/2 024 Active Levothyroxine Sodium 137 MCG Oral TabletIndications :Acquired hypothyroidism TAKE ONE TABLET by MOUTH IN THE morning. (AT least 30 MINUTES prior TO breakfast OR other meds) 90 Tablet 024 2023 Discontinued documented as of this encounter (statuses as of 08/11/2024) Active Problems Problem Noted Date Diagnosed Date [...] 03/31/2022 DDD (degenerative disc disease), lumbar 03/31/20 22 Current mild episode of brody r depressive disorder without prior episode 03/31/2022 Anxiety 03/31/2022 History of CVA (cerebrovascular accident) 2021 Blindness of right eye with normal vision in contralateral eye 03/31/2022 Glaucoma associated with ocular disorder 011 Vitreous degeneration 07/18/2011 Central corneal ulcer 11/11/2010 documented as of this encounter (statuses as of 08/11/2024) Resolved Problems Problem Noted Date Diagnosed Date Resolved Date 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 03/31/2022 02/23/2023 Nuclear senile cataract 07/18/2011 07/0 04/2022 documented as of this encounter (statuses as of 08/11/2024) Social History Tobacco Use Types Packs/Day Years Used Date Smoking Tobacco: Every Day Cigarettes 1 48 Smokeless Tobacco: Never Alcohol Use Standard Drinks/Week Comments Yes 0 (1 standard drink = 0.6 oz pur e alcohol) rare Comments No Sex and Gender Information Value Date Recorded Sex Assigned at Not on file Legal Sex Female 7:07 AM EST Gender Identity Not on file Sexual Orientation Not on file Occupation Industry Job Start Date Job End Date Retired Not on file Not on file Not on file documented as of this encounter Miscellaneous Notes * Telephone Encounter - Wendie Ordoñez MD - 08/11/2024 8:15 AM EST Signed Prescriptions: Disp Refills Levothyroxine Sodium 137 MCG Oral Tablet 90 Tab*0 Sig: TAKE ONE TABLET by MOUTH IN THE morning. (AT least 30 MINUTES prior TO breakfast OR other meds) Authorizing Provider: WENDIE ORDOÑEZ Refused Prescriptions: Disp Refills Famotidine 20 MG Oral Tablet (Pepcid) 90 Tab*0 Sig: TAKE ONE TABL ET BY MOUTH AT BEDTIME Refused By: JULIO MENDOZA Reason for Refusal: Too soon * Telephone Encounter - Lise Lora, [employer] - 08/08/2024 1:32 PM ESTPending Prescriptions: Disp Refills Levothyroxine Sodium 137 MCG Oral Tablet 90 Tab*0 Sig: TAKE ONE TABLET by MOUTH IN THE morning. (AT least 30 MINUTES prior TO breakfast OR other meds) Refused Prescriptions: Disp Refills Famotidine 20 MG Oral Tablet (Pepcid) 90 Tab*0 Sig: TAKE ONE TABLET BY MOUTH AT BEDTIME Refused By: JULIO MENDOZA Reason for Refusal: Too soon * Telephone Encounter - Lise Lora monotype setter - 08/08/2024 1:31 PM EST Received message from [facility] regarding patient needing labs. Call Placed, Left message on voicemail advising of required labs Thank you, Lise Lora [employer] Source Operations Specialist Work in Field 08/08/2024, 1:31 PM * Telephone Encounter - Julio Mendoza [facility] - 08/08/2024 1:24 PM EST Pending Prescriptions: Disp Refills Levothyroxine Sodium 137 MCG Oral Tablet 90 Tab*0 Sig: TAKE ONE TABLET by MOUTH IN THE morning. (AT least 30 MINUTES prior TO breakfast OR other meds) Refused Prescriptions: Disp Refills Famotidine 20 MG Oral Tablet (Pepcid) 90 Tab*0 Sig: TAKE ONE TABLET BY MOUTH AT BEDTIME Refused By: JULIO MENDOZA Reason for Refusal: Too soon * Telephone Encounter - Julio Mendoza [facility] - 08/08/2024 1:23 PM EST Unable to authorize medication refills for pended medication(s) at this time. Per refill protocol patient should have TSH within normal limits on file within past year. Reviewed AMP report, Care Gaps/Health Maintenance, medications list, and for any routine labs typically ordered for this patient. Lab orders placed. Please contact patient to advise of labs ordered for blood draw. Fasting is not required. Advise toobtain labs before requesting the next refill. After contacting patient, please forward request to Wendie Ordoñez MD. Thanks, Julio Mendoza PharmD Clinical Pharmacist [facility] [phone] 08/08/2024, 1:23 PM documented in this encounter Plan of Treatment [...] PCV) 04/03/2015 04/03/2014 CKD PHOS USE SMARTSET 07253 11/07/2023 11/07/2022 GFR 02/28/2024 08/29/2023, 07/25, 11/07/2022, Additional history exists Influenza Vaccine (FLU shot) (#1) 2024 12/09/2020 CKD HGB USE SMARTSET 10558 08/29/202408/29, 11/07/2022, 11/07/2022, Additional history exists TSH [...] Not on filedocumented as of this encounter Visit Diagnoses Diagnosis Acquired hypothyroidism Unspecified hypothyroidism Gastroesophageal reflux disease with esophagitis without hemorrhage documented in this encounter Advance Directives Documents on File Type Date Recorded Patient Thread Separator Expl anation POLST 06/07/2023 2:29 PM POLST ([place] ited DNR) Advance Directives and Living Will 10/10/2010 Power of Best Worker 10/03/2010 * Full Code (Latest Code Status [...] and were consensually agreed upon. Care Teams Diesel Tractor Engine Mechanic Relationship Specialty Start Date End Date Wendie Ordoñez MD [address] [place] [address] APRIL Alan [phone] PCP - General Family Medicine 07/17/22 documented as of this encounter
--- OUTSIDE RECORDS SUMMARY | 2024-09-03 03:27 | External Medical Summary | Summary of Care ---
Author Name Unknown Organization [facility] Address [address] [place] [address] Phone [phone] Care Team Providers Care Tungsten Refiner Name Role Phone Wendie Ordoñez MD Primary Care Provide r Encounter Details Date Type Department Care Team (Late st Contact Info) Description 07/15/2024 4:15 PM EDT Documentation Eyewear [address] [address] [facility] Eyewear [address] [place] [id number] Myopia of both eyes with astigmatism* Allergies Active Allergy Reactions Criticality Noted Date Comments Sulfamethoxazole-Trimethoprim 2021 documented as of this encounter (statuses as of 07/18/2024) Medications Medication Sig Dispensed Refills Start Date [...] as of this encounter (statuses as of 07/18/2024) Active Problems Problem Noted Date Diagnosed Date [...] as of this encounter (statuses as of 07/18/2024) Resolved Problems Problem Noted Date Diagnosed Date Resolved Date 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 [phone] Call Missy's number (daughter/money room teller) Order Date: 07/15/2024 Provider: Dr. Damico Rx Date: 08/30/23 Dispenser: Nicole Go Redkatey Reason: Patient Rx: DVO Right eye: Balance Left eye: -12.00 +3.75 089 Lab Notes: Frames to [facility]. Complete. [facility] Family SEND TO [facility] Lenses Type/Style: Right: Single Vision Left: Single Vision Lens Material: Polycarbonate Photochrom: Edge: Coating: Tint: Right Left Dist PD: 33.5 Near PD: Dist PD: 33.5 Near PD: Seg Ht: OC: 28 Seg Ht: OC: 28 Frames- [facility] supplied Carpenter Cradle And Dolly/Collection: LUX Assure Eye - Enhance Style: 4179 Zyl Color: Matte Smoke/Matte Black Eye Size: 51 - 19 - 145 B: 41 ED 56 documented in this encounter Plan of Treatment [...] PCV) 04/03/2015 04/03/2014 CKD PHOS USE SMARTSET 97315 11/07/2023 11/07/2022 GFR 02/28/2024 08/29/2023, 07/25, 11/07/2022, Additional history exists Influenza Vaccine (FLU shot) (#1) 2024 12/09/2020 CKD HGB USE SMARTSET 43986 08/29/202408/29, 11/07/2022, 11/07/2022, Additional history exists TSH [...] as of this encounter Visit Diagnoses Diagnosis Myopia of both eyes with astigmatism- Primary documented in this encounter Advance Directives Documents on File Type Date Recorded Patient Functional Skills Tutor Expl anation POLST 06/07/2023 2:29 PM POLST (Dooley ited DNR) Advance Directives and Living Will 10/10/2010 Power of Binder Caser 10/03/2010 * Full Code (Latest Code Status [...] and were consensually agreed upon. Care Teams Tungsten Refiner Relationship Specialty Start Date End Date Wendie Ordoñez MD [address] [place] [address] APRIL Alan [phone] PCP - General Family Medicine 07/17/22 documented as of this encounter
--- OUTSIDE RECORDS SUMMARY | 2024-09-03 03:27 | External Medical Summary | Summary of Care ---
Author Name Unknown Organization [facility] Address [address] [place] [address] Phone [phone] Care Team Providers Care Insulation Board Back Tender Name Role Phone Wendie Ordoñez MD Primary Care Provide r Encounter Details Date Type Department Care Team (Late st Contact Info) Description 07/14/2024 12:45 PM EDT Documentation Eyewear [address] [address] [facility] Eyewear [address] [place] [address] Myopia of both eyes with astigmatism* Allergies [...] Progress Notes * Nicole Borrego TECH - 07/14/2024 12:45 PM EDT [facility] Lab: [facility] Order Type: Complete Salina Trujillo [id number] [facility] [phone] Call Berna number Order Date: 07/14/2024 Provider: Dr. Damico Rx Date: 08/30/23 Dispenser: Nicole Go Redkatey Reason: Patient Rx: DVO Rt Eye: Balance Left eye: -12.00 +3.75 089 Lab Notes: Frames to [facility] complete. SEND TO [facility] Family Lenses Type/Style: Right: Single Vision Left: Single Vision Lens Material: Polycarbonate Photochrom: Edge: Coating: Tint: Right Left Dist PD: 33.5 Near PD: Dist PD: 33.5 Near PD: Seg Ht: OC: 26 Seg Ht: OC: 26 Frames- [facility] supplied National Sales Manager/Collection: Starfish 360 Eye - Enhance Style: 4482 ZYL Color: Tort. Eye Size: 50 - 17 - 138 B: 36 ED 55 documented in this encounter Plan of Treatment [...] PCV) 04/03/2015 04/03/2014 CKD PHOS USE SMARTSET 86412 11/07/2023 11/07/2022 GFR 02/28/2024 08/29/2023, 07/25, 11/07/2022, Additional history exists Influenza Vaccine (FLU shot) (#1) 2024 12/09/2020 CKD HGB USE SMARTSET 60791 08/29/202408/29, 11/07/2022, 11/07/2022, Additional history exists TSH [...] Documents on File Type Date Recorded Patient Music Education Adjunct Professor Expl anation POLST 06/07/2023 2:29 PM POLST (Miah ited DNR) Advance Directives and Living Will 10/10/2010 Power of Fruit Harvester Machine Operator 10/03/2010 * Full Code (Latest Code Status [...] and were consensually agreed upon. Care Teams Insulation Board Back Tender Relationship Specialty Start Date End Date Wendie Ordoñez MD [address] [place] [address] APR[place] Alan [phone] PCP - General Family Medicine 07/17/22 documented as of this encounter
--- OUTSIDE RECORDS SUMMARY | 2024-09-03 03:27 | External Medical Summary | Summary of Care ---
Author Name Unknown Organization [facility] Address [address] [place] [address] Phone [phone] Care Team Providers Care Clarifier Operator Helper Name Role Phone Wendie Ordoñez MD Primary Care Provide r Encounter Details Date Type Department Care Team ([facility] st Contact Info) Description 07/30/2024 Documentation Eyewear [facility] [address] [place] [address] [facility] [employer] [address] [place] [address] Allergies Active Allergy Reactions Criticality Noted Date [...] PCV) 04/03/2015 04/03/2014 CKD PHOS USE SMARTSET 81973 11/07/2023 11/07/2022 GFR 02/28/2024 08/29/2023, 07/25, 11/07/2022, Additional history exists Influenza Vaccine (FLU shot) (#1) 2024 12/09/2020 CKD HGB USE SMARTSET 46926 08/29/202408/29, 11/07/2022, 11/07/2022, Additional history exists TSH [...] Documents on File Type Date Recorded Patient Nursing Assoc Expl anation POLST 06/07/2023 2:29 PM POLST (Miah ited DNR) Advance Directives and Living Will 10/10/2010 Power of Yard Attendant 10/03/2010 * Full Code (Latest Code Status [...] and were consensually agreed upon. Care Teams Clarifier Operator Helper Relationship Specialty Start Date End Date Wendie Ordoñez MD [address] [place] [address] APRIL Alan [phone] PCP - General Family Medicine 07/17/22 documented as of this encounter
--- OUTSIDE RECORDS SUMMARY | 2024-09-03 03:27 | External Medical Summary | Summary of Care ---
Author Name Unknown Organization [facility] Address [address] [place] [address] Phone [phone] Care Team Providers Care Return Agent Airport Name Role Phone Wendie Ordoñez MD Primary Care Provide r Reason for Visit * Reason Onset Date Comments Fax 07/24/2024 Encounter Details Date Type Department Care Team (Late st Contact Info) Description 07/24/2024 Telephone Family Medicine [address] [address] Wendie Ordoñez MD [address] [place] [address] [place] [address] Fax Allergies Active Allergy Reactions Criticality Noted Date Comments Sulfamethoxazole-Trimethoprim 2021 documented as of this encounter (statuses as of 07/24/2024) Medications Medication Sig Dispensed Refills Start Date [...] as of this encounter (statuses as of 07/24/2024) Active Problems Problem Noted Date Diagnosed Date [...] as of this encounter (statuses as of 07/24/2024) Resolved Problems Problem Noted Date Diagnosed Date Resolved Date 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 Fax is in dr. Mc's box waiting for signature. * Telephone Encounter - Lashon Hayes OSA - 07/24/2024 2:07 PM EDT Received a call asking if fax was received by office. Name/Company sending fax: [employer] [facility] What fax is pertaining to: [employer] order # [id number] Date(s) they sent request: 06/19 Verified fax number they are sending to is correct (Y or N): yes [phone] Callback Number for the clinic to call to verified if fax was received: PH: [phone] Order number # [id number] documented in this encounter Plan of Treatment [...] PCV) 04/03/2015 04/03/2014 CKD PHOS USE SMARTSET 22798 11/07/2023 11/07/2022 GFR 02/28/2024 08/29/2023, 07/25, 11/07/2022, Additional history exists Influenza Vaccine (FLU shot) (#1) 2024 12/09/2020 CKD HGB USE SMARTSET 56150 08/29/202408/29, 11/07/2022, 11/07/2022, Additional history exists TSH [...] Documents on File Type Date Recorded Patient Back Tender Pulp Drier Expl anation POLST 06/07/2023 2:29 PM POLST (Dooley ited DNR) Advance Directives and Living Will 10/10/2010 Power of International Controller 10/03/2010 * Full Code (Latest Code Status [...] and were consensually agreed upon. Care Teams Return Agent Airport Relationship Specialty Start Date End Date Wendie Ordoñez MD [address] [place] [address] APRIL Alan [phone] PCP - General Family Medicine 07/17/22 documented as of this encounter
--- OUTSIDE RECORDS SUMMARY | 2024-09-03 03:27 | External Medical Summary | Summary of Care ---
Author Name Unknown Organization [facility] Address [address] [place] [address] Phone [phone] Care Team Providers Care Insole Lip Turner Name Role Phone Wendie Ordoñez MD Primary Care Provide r Reason for Visit * Reason Onset Date Comments [facility]: Screening 08/13/2024 Encounter Details Date Type Department Care Team ([facility] st Contact Info) Description 08/13/2024 Telephone [facility] [address] [facility] [address] Mariia Gunter, ENROLLMENT MANAGEMENT MANAGER [address] [place], [place] [phone] [facility]: Screening Allergies Active Allergy Reactions Criticality Noted Date Comments Sulfamethoxazole-Trimethoprim 2021 documented as of this encounter (statuses as of 08/13/2024) Medications Aspirin EC 81 MG Oral Tablet Delayed ReleaseIndications :History of CVA (cerebrovascular accident) Take by mouth 1 Tablet in the morning. 100 Tablet 3 03/31/20 22 Active Atorvastatin Calcium 40 MG Oral Tablet (Lipitor)Indicatio ns:Dyslipidemia, goal LDL below 130 TAKE ONE TABLET BY MOUTH EVERY MORNING 90 Tablet 1 03/30/20 23 Active Additional Information Patient not taking.Reported on 06/06/2023 oxyCODONE HCl 5 MG Oral Tablet Abuse-Deterrent Take 5 mg by mouth every 4 hours as needed for Pain, Severe. Active Furosemide 20 MG Oral Tablet (Lasix)Indications :Leg swelling Take 1 Tablet by mouth daily as needed (leg swelling). 30 Tablet 2 08/27/20 23 Active FLUoxetine HCl 20 MG Oral Capsule (PROzac)Indication s:Anxiety,Current mild episode of major depressive disorder without prior episode (HCC) Take 1 Capsule by mouth in the morning. 90 Capsule 2 11/21/19 24 Active Meloxicam 7.5 MG Oral Tablet (Mobic)Indications :Chronic bilateral low back pain without sciatica TAKE ONE TABLET BY MOUTH IN THE MORNING FOR PAIN 30 Tablet 11 02/01/20 24 Active hydrOXYzine HCl 50 MG Oral TabletIndications: Anxiety Take 1 Tablet by mouth 3 times a day as needed for Anxiety. 40 Tablet 1 02/26/20 24 Active Rizatriptan Benzoate 5 MG Oral TabletIndications: Migraine variant Take 1 Tablet by mouth as needed for Migraine. May repeat in 2 hours if needed. Maximum 30mg in 24 hours 10 Tablet 3 02/28/20 24 Active Famotidine 20 MG Oral Tablet (Pepcid)Indication s:Gastroesophageal reflux disease with esophagitis without hemorrhage TAKE ONE TABLET BY MOUTH AT BEDTIME 90 Tablet 1 03/27/20 24 Active Cyclobenzaprine HCl 10 MG Oral Tablet (Flexeril)Indicati ons:DDD (degenerative disc disease), lumbar,Chronic bilateral low back pain without sciatica Take 1 Tablet by mouth at bedtime as needed for Pain or Muscle spasms. 30 Tablet 3 03/27/20 24 Active Pantoprazole Sodium 40 MG Oral Tablet Delayed Release (Protonix)Indicati ons:Gastroesophage al reflux disease with esophagitis without hemorrhage Take 1 Tablet by mouth in the morning. 30 minutes before the first meal of the day. Do not crush, split or chew the tablet. 90 Tablet 1 05/19/20 24 Active Gabapentin 300 MG Oral Capsule (Neurontin)Indicat ions:DDD (degenerative disc disease), lumbar,Chronic bilateral low back pain without sciatica Take 1 Capsule by mouth in the morning and 1 Capsule before bedtime. 180 Capsule 1 06/11/20 24 Active Levothyroxine Sodium 137 MCG Oral TabletIndications: Acquired hypothyroidism TAKE ONE TABLET by MOUTH IN THE morning. (AT least 30 MINUTES prior TO breakfast OR other meds) 90 Tablet 08/11/20 24 Active documented as of this encounter (statuses as of 08/13/2024) Active Problems Problem Noted Date Diagnosed Date Arthritis 08/13/2024 Blurring of visual image 08/13/2024 Cancer related pain 08/13/2024 Cerebrovascular accident (CVA) 08/13/2024 Chronic kidney disease 08/13/2024 Depression 08/13/2024 Gastroesophageal reflux disease 08/13/2024 H/O right mastectomy 08/13/2024 H/O thyroidectomy 08/13/2024 H/O: hysterectomy 08/13/2024 History of removal of eye 08/13/2024 Hx of appendectomy 08/13/2024 Hyperlipidemia 08/13/2024 Lumbar stenosis 08/13/2024 Migraines 08/13/2024 Papillary carcinoma of thyroid 08/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 Right lower lobe pulmonary nodule 08/13/2024 Seizure 08/13/2024 Weakness generalized 08/13/2024 Malignant neoplasm of upper lobe, right bronchus or lung 11/21/2023 Metastasis to mediastinal lymph node 11/21/2023 Other secondary scoliosis, thoracolumbar region 11/21/2023 Mediastinal adenopathy 05/22/2023 Adenocarcinoma of lower lobe of right lung 05/02 Malignant neoplasm of lower lobe of right [...] with normal vision in contralateral eye 03/31/2022 Dry eye syndrome of bilateral lacrimal glands Injury of conjunctiva and co rneal abrasion without foreign body, left eye, initial encounter 12/06/2021 Orbital cellulitis, right 12/22/2016 Pain of left hip joint 09/15/2016 Insomnia 09/15/2015 Spondylosis of cervical spine 09/26/2013 Chronic angle-closure glauco ma, unspecified eye, stage unspecified 01/21/2013 Pain in thoracic spine 01/25/2012 Thyroid cancer 09/25/2011 Glaucoma associated with ocular disorder 011 Vitreous degeneration 07/18/2011 Attention deficit hyperactivity disorder (ADHD) 05/01/2011 Hypothyroidism 05/01/2011 Lyme disease 05/01/2011 Pain in joint involving multiple sites 1 Vitamin D deficiency 05/01/2011 Fibromyalgia 05/01/2011 Central corneal ulcer 11/11/2010 documented as of this encounter (statuses as of 08/13/2024) Resolved Problems Problem Noted Date Diagnosed Date Resolved Date 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 A review of this chart was completed and: Salina does not meet criteria for enrollment into [facility]. Referral Source: Monthly Proactive Eligibility List Criteria for Ineligibility: On Hospice Care Referring care team was notified via : Epic communication documented in this encounter Plan of Treatment [...] PCV) 04/03/2015 04/03/2014 CKD PHOS USE SMARTSET 65039 11/07/2023 11/07/2022 GFR 02/28/2024 08/29/2023, 07/25, 11/07/2022, Additional history exists Influenza Vaccine (FLU shot) (#1) 2024 12/09/2020 CKD HGB USE SMARTSET 54309 08/29/202408/29, 11/07/2022, 11/07/2022, Additional history exists TSH [...] Documents on File Type Date Recorded Patient Divorce Lawyer Expl anation POLST 06/07/2023 2:29 PM POLST (Dooley ited DNR) Advance Directives and Living Will 10/10/2010 Power of Sales Vendor 10/03/2010 * Full Code (Latest Code Status [...] and were consensually agreed upon. Care Teams Insole Lip Turner Relationship Specialty Start Date End Date Wendie Ordoñez MD [address] [place] [address] [place]IL Alan [phone] PCP - General Family Medicine 07/17/22 documented as of this encounter
--- OUTSIDE RECORDS SUMMARY | 2024-09-03 03:28 | External Medical Summary | Summary of Care ---
Author Name Unknown Organization [facility] Address [address] [place] [address] Phone [phone] Care Team Providers Care Delivery Truck Driver Heavy Name Role Phone Wendie Ordoñez MD Primary Care Provide r Encounter Details Date Type Department Care Team (Late st Contact Info) Description 07/07/2024 Population Health External Data Unspecified Department Allergies Active Allergy Reactions Criticality Noted Date Comments Sulfamethoxazole-Trimethoprim 2021 documented as of this encounter (statuses as of 07/07/2024) Medications Medication Sig Dispensed Refills Start Date [...] as of this encounter (statuses as of 07/07/2024) Active Problems Problem Noted Date Diagnosed Date [...] as of this encounter (statuses as of 07/07/2024) Resolved Problems Problem Noted Date Diagnosed Date Resolved Date 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 03/31/2022 02/23/2023 Nuclear senile cataract 07/18/2011 07/0 04/2022 documented as of this encounter (statuses as of 07/07/2024) Social History Tobacco Use Types Packs/Day Years [...] on file documented as of this encounter Plan of Treatment Health Maintenance [...] PCV) 04/03/2015 04/03/2014 CKD PHOS USE SMARTSET 19052 11/07/2023 11/07/2022 GFR 02/28/2024 08/29/2023, 07/25, 11/07/2022, Additional history exists Influenza Vaccine (FLU shot) (#1) 2024 12/09/2020 CKD HGB USE SMARTSET 72454 08/29/202408/29, 11/07/2022, 11/07/2022, Additional history exists TSH [...] Documents on File Type Date Recorded Patient Slicing Machine Operator/Tender Expl anation POLST 06/07/2023 2:29 PM POLST (Dooley ited DNR) Advance Directives and Living Will 10/10/2010 Power of Sawmill Manager 10/03/2010 * Full Code (Latest Code Status [...] and were consensually agreed upon. Care Teams Delivery Truck Driver Heavy Relationship Specialty Start Date End Date Wendie Ordoñez MD [address] [place] [address] APRIL Alan [phone] PCP - General Family Medicine 07/17/22 documented as of this encounter
--- OUTSIDE RECORDS SUMMARY | 2024-09-03 03:28 | External Medical Summary | Summary of Care ---
Author Name Unknown Organization [facility] Address [address] [place] [address] Phone [phone] Care Team Providers Care Marketing Traffic Manager Name Role Phone Wendie Ordoñez MD Primary Care Provide r Reason for Visit * Reason Comments eRx-Medication Refill Encounter Details Date Type Department Care Team (Late st Contact Info) Description 07/10/2024 Refill Family Medicine [address] [address] Wendie Ordoñez MD [address] [place], [place] [address]APRIL donaldson [address] DDD (degenerative disc disease), lumbar; Chronic bilateral low back pain without sciatica; Gastroesophageal reflux disease with esophagitis without hemorrhage Allergies Active Allergy Reactions Criticality Noted Date Comments Sulfamethoxazole-Trimethoprim 2021 documented as of this encounter (statuses as of 07/11/2024) Medications Medication Sig Dispensed Refills Start Date [...] as of this encounter (statuses as of 07/11/2024) Active Problems Problem Noted Date Diagnosed Date [...] as of this encounter (statuses as of 07/11/2024) Resolved Problems Problem Noted Date Diagnosed Date Resolved Date 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 03/31/2022 02/23/2023 Nuclear senile cataract 07/18/2011 07/0 04/2022 documented as of this encounter (statuses as of 07/11/2024) Social History Tobacco Use Types Packs/Day Years [...] encounter Miscellaneous Notes * Telephone Encounter - Wild Kerns RPh - 07/11/2024 11:24 AM EDTRefused Prescriptions: Disp Refills Cyclobenzaprine HCl 10 MG Oral Tablet (Fle*30 Tab*3 Sig: Take 1Tablet by mouth at bedtime as needed for Pain or Muscle spasms.Refused By: Jaki KERNSfor Refusal: Managed by another physicianReason for Refusal Comment: managed by hospice provider Famotidine 20 MG Oral Tablet (Pepcid) 90 Tab*3 Sig: TAKE ONE TABLET BY MOUTH AT BEDTIMERefusedBy: Jaki KERNS for Refusal: Managed by another physicianReason for Refusal Comment: managed by hospice provider Pantoprazole Sodium 40 MG Oral Tablet Kinsey*90 Tab*3 Sig: Take 1 Tablet bymouth in the morning. 30 minutes before the first meal of the day. Do not crush, split or chew the tablet.Refused By: Jaki KERNS for Refusal: Managed by another physicianReason for Refusal Comment: managed by hospice provider * Telephone Encounter - Wild Kerns RPh - 07/11/2024 11:17 AM EDT Per most recent chart notes patient has been admitted to hospice. Requests refused. Managed by hospice provider. Wild Flood Rph, Pharm D. Clinical Pharmacist [facility] [phone] 07/11/2024,11:24 AM documented in this encounter Plan of Treatment [...] PCV) 04/03/2015 04/03/2014 CKD PHOS USE SMARTSET 48193 11/07/2023 11/07/2022 GFR 02/28/2024 08/29/2023, 07/25, 11/07/2022, Additional history exists Influenza Vaccine (FLU shot) (#1) 2024 12/09/2020 CKD HGB USE SMARTSET 55527 08/29/202408/29, 11/07/2022, 11/07/2022, Additional history exists TSH [...] as of this encounter Visit Diagnoses Diagnosis DDD (degenerative disc disease), lumbar Degeneration of lumbar or lumbosacral intervertebral disc Chronic bilateral low back pain without sciatica Gastroesophageal reflux disease with esophagitis without hemorrhage documented in this encounter Advance Directives Documents on File Type Date Recorded Patient [place] Warden Expl anation POLST 06/07/2023 2:29 PM POLST (Dooley ited DNR) Advance Directives and Living Will 10/10/2010 Power of Horse Racing Analyst 10/03/2010 * Full Code (Latest Code Status [...] and were consensually agreed upon. Care Teams Marketing Traffic Manager Relationship Specialty Start Date End Date Wendie Ordoñez MD [address] [place] [address] APRIL Alan [phone] PCP - General Family Medicine 07/17/22 documented as of this encounter
--- NOTE | 2024-09-03 07:23 | Communication Note ---
Date of Service: September 02, 2024 Palliative care consulted for hospice evaluation, patient noted to already be enrolled with hospice at home prior to admit with comfort measures orders already instituted in ED. family and RN from [facility] at bedside. [facility] working with [facility] for GIP approval. Per BSRN, pt comfortable after single dose of IV morphine. Curbside discussion with Willian Ryan LEAD CUSTOMER SERVICE REPRESENTATIVE (attending team) who shared that Palliative consult was placed to evaluate for GIP., discussed that this is accomplished by Hospice team. She shared that patient comfort was currently being managemed well by their team with [facility] team and asked that formal consult be delayed at this time, they will contact palliative care team for further needs not addressed by hospice team. [facility] has been contacted by [facility], [facility] staff reportedly had advised family to send pt to ED for GIP admission. No billing submitted for this pt as full consult not performed.
[2024-09-03] MEDS ORDERED: LORazepam 1 MG TAB SL PRN (10:18)
[2024-09-03] MEDS ORDERED: MoRPHine SULFATE 10 MG/0.5 ML UDP PO PRN (10:18)
[2024-09-03] MEDS: MoRPHine SULFATE 2 MG/ML CARP IV PRN (12:48)
--- NOTE | 2024-09-03 13:42 | Discharge Summary ---
Discharge Summary Date of Service September 03, 2024 Principal Dx & Hospital Course #1 = Principal Diagnosis (1) Acute alteration in mental status: (2) Hospice care patient: (3) Cancer related pain: (4) Malignant neoplasm of lung: (5) Adenocarcinoma of lower lobe of right lung: Plan Patient is 63-year-old female with known metastatic lung cancer has been on hospice for the last 2 months. Her last few days she has rapidly declined to the point where unable to really care for herself at home. Brought to the emergency room for evaluation. Patient was admitted to the hospital with comfort care. Case management was involved to assist with possible GIB placement. She was evaluated by her hospice care provider. Is determined to be a GIP candidate. She be transition to GIP. Notes For Next Care Provider Medication Changes From Visit Comfort care meds Admission HPI Per Admitting Provider The patient is a 63-year-old female with a past medical history of anxiety, depression, insomnia, metastatic lung cancer who has been on hospice for approximately 2 months. The patient's iifqdh-gx-ywq is at bedside and reports that she found the patient unresponsive and down on the floor in her home. Hospice nursing has been following and follows with the patient about 2 times a week. The patient has been able to walk to the bathroom over the past week and is usually able to get around by herself. This Istalol reports that over the past 24 hours there has been a severe decline in her mentation. When she found her wlhghr-gk-mvi unresponsive, she called the hospice nurse and was directed to call 911. On exam, the patient is lethargic and opens her eyes but does not follow commands or respond back to her name being called. She remains on 2 L of oxygen. She does not appear in any distress at this time. she does respond to painful stimuli. ROS difficult to complete due to mentation. Ukewdh-lr-zjw at bedside and advanced directives are discussed. The patient and the eoxnvi-kv-wxy would like to only pursue comfort measures at this time. The weuazi-va-jkq's concern with the amount of help that the patient has at home and is interested in either 24-hour care or possible penitentiary facility on discharge. The patient tmaksl-fk-vmj is requesting no invasive treatment, no antibiotics, no IV fluids, she would just like the patient to be kept comfortable at this point. The patient will be admitted for further management and palliative care/hospice will be consulted Admission Exam Per Admitting Provider See H&P Discharge Exam Constitutional: Lethargic, minimally responsive HEENT: Mucous membranes dry Lungs: Decreased CV: S1-S2, regular Abdomen: Soft, nontender, nondistended Extremities: No significant edema Neuro: Minimal response Psych: Lethargic Updated Medication List Medication Instructions Recorded Confirmed Type albuterol sulfate 2.5 mg/3 mL 2.5 mg inhalation UD PRN Shortness 10/17/23 09/02/24 History (0.083 %) solution for nebulization Of Breath cyclobenzaprine 10 mg tablet 10 mg PO HS PRN Muscle Spasm 10/17/23 09/02/24 History famotidine 20 mg tablet (Pepcid) 20 mg PO HS 10/17/23 09/02/24 History gabapentin 300 mg capsule 300 mg PO AMHS 10/17/23 09/02/24 History levothyroxine 137 mcg capsule 137 mcg PO DAILY 10/17/23 09/02/24 History pantoprazole 40 mg tablet,delayed 40 mg PO DAILYBB 10/17/23 09/02/24 History release rizatriptan 5 mg tablet 5 mg PO UD PRN Migraine Headache 10/17/23 09/02/24 History lorazepam 1 mg tablet 1 mg PO UD PRN Anxiety 12/26/23 09/02/24 History hydroxyzine HCl 50 mg tablet 50 mg PO UD PRN Anxiety 07/02/24 09/02/24 History morphine 15 mg tablet,extended 15 mg PO Q12 07/02/24 09/02/24 History release ondansetron HCl 8 mg tablet 8 mg PO UD PRN Nausea 07/02/24 09/02/24 History venlafaxine 75 mg capsule,extended 75 mg PO DAILY 07/02/24 09/02/24 History release 24 hr (Effexor XR) albuterol sulfate 90 mcg/actuation 1 puff inhalation .Q4-6H PRN 09/02/24 09/02/24 History aerosol inhaler sob/wheezing oxycodone 15 mg tablet 10 mg PO Q4H PRN pain 09/02/24 09/02/24 History acetaminophen 325 mg tablet 650 mg (2 x 325 mg) PO Q4H PRN 09/03/24 Rx fever or pain #20 tabs atropine 1 % eye drops 4 drp sublingual Q1H PRN 09/03/24 Rx secretions #2 mL hyoscyamine sulfate 0.125 mg 0.125 mg sublingual Q4H PRN 09/03/24 Rx tablet (Levsin) dyspepsia #10 tabs lorazepam 1 mg tablet 1 mg sublingual Q4H PRN agitation 09/03/24 Rx #10 tabs lorazepam 2 mg/mL injection 0.5 mg (0.25 mL) IV Q4H PRN 09/03/24 Rx solution agitation #25 mL morphine 2 mg/mL intravenous 2 mg IV Q1H PRN Discomfort #10 mL 09/03/24 Rx syringe morphine concentrate 100 mg/5 mL 10 mg (0.5 mL) PO Q1H PRN 09/03/24 Rx (20 mg/mL) oral solution Discomfort #30 mL ondansetron 4 mg disintegrating 4 mg sublingual Q4H PRN nausea and 09/03/24 Rx tablet vomiting #10 tabs ondansetron HCl (PF) 4 mg/2 mL 4 mg (2 mL) IV Q4H PRN nausea and 09/03/24 Rx injection solution vomiting #20 mL Hospital Stay Data Consultations 09/02/24 09:17 ED Decision to Admit Stat Diagnostic Imagining Performed Reviewed imaging, laboratory and diagnostic studies. Pertinent findings as below. Pending Results Patient Have Any Pending Studies at Discharge: No Discharge Instructions Given to Patient (Per Discharging Provider) Will be admitted to [facility] Total Time Total Time Spent Total Time Spent (In Minutes): 38
== END 2024-09-03 13:54 | disposition hospice, inpatient (51) | DRG 951 ==
LOC: ED 08:35 → INTOOBSV 09:46 → 3E 09:46 → SUATTDRO 09:46 → 3E 12:17

== ENCOUNTER 2024-09-03 13:56 | Inpatient (IN) ==
[2024-09-03] MEDS ORDERED: GLYCOPYRROLATE 0.2 MG/ML VIAL IV PRN (14:08)
[2024-09-03] MEDS ORDERED: ATROPINE SULFATE 1% OP SOLN 5 ML BTL SL PRN (14:08)
[2024-09-03] MEDS ORDERED: HALOPERIDOL ORAL SOLN 2 MG/ML PO PRN (14:08)
[2024-09-03] MEDS ORDERED: LORazepam 1 MG TAB SL PRN (14:08)
[2024-09-03] MEDS ORDERED: MoRPHine SULFATE 10 MG/0.5 ML UDP PO PRN (14:08)
[2024-09-03] MEDS ORDERED: ACETAMINOPHEN 325 MG TAB PO PRN (14:08)
[2024-09-03] MEDS ORDERED: ONDANSETRON INJ 2 MG/ML 2 ML VIAL IV PRN (14:08)
--- NOTE | 2024-09-03 14:20 | History & Physical Report ---
Date of Service September 03, 2024 Assessment & Plan (1) Hospice care patient: (2) Adenocarcinoma of lower lobe of right lung: (3) Cancer related pain: (4) Delirium due to another medical condition: Plan Patient with advancing adenocarcinoma of the lung with acute delirium and encephalopathy that has made it difficult to care for her at home. Difficult to manage symptoms outside of hospital setting. Admit to [facility] status Ativan for discomfort and agitation Morphine for any type of discomfort, respiratory distress Hehsqt-rb-tpz at bedside and is agreeable to ongoing hospice care. Anticipate life expectancy measured in days Admission and Anticipated Discharge Date Admission Date: September 03, 2024 History of Present Illness Chief Complaint: Metastatic lung cancer with acute mental status and deterioration at home the point where can no longer be managed at home. Primary Care Provider: Wendie Ordoñez MD Patient 63-year-old female who is known adenocarcinoma of the lung has been on hospice at home for the past couple months. Mental status rapidly deteriorated to the point where she was no longer be cared for at home. She initially presented to the emergency room and was admitted for ongoing comfort care. She was evaluated by her hospice provider and was deemed appropriate for [facility] admission. She was transition to [facility] comfort care today. Patient is minimally to unresponsive at time of my evaluation. Zssmjd-[id number] is at the bedside and confirms inability to care for her at home and keep her comfortable at home. Allergies Allergy/AdvReac Type Severity Reaction Status Date / Time sulfamethoxazole AdvReac hand Verified 01/28/24 11:13 [From Bactrim] swelling trimethoprim [From Bactrim] AdvReac hand Verified 01/28/24 11:13 swelling Home Medications Medication Instructions Recorded Confirmed Type acetaminophen 325 mg tablet 650 mg (2 x 325 mg) PO Q4H PRN 09/03/24 Rx fever or pain #20 tabs atropine 1 % eye drops 4 drp sublingual Q1H PRN 09/03/24 Rx secretions #2 mL hyoscyamine sulfate 0.125 mg 0.125 mg sublingual Q4H PRN 09/03/24 Rx tablet (Levsin) dyspepsia #10 tabs lorazepam 1 mg tablet 1 mg sublingual Q4H PRN agitation 09/03/24 Rx #10 tabs lorazepam 2 mg/mL injection 0.5 mg (0.25 mL) IV Q4H PRN 09/03/24 Rx solution agitation #25 mL morphine 2 mg/mL intravenous 2 mg IV Q1H PRN Discomfort #10 mL 09/03/24 Rx syringe morphine concentrate 100 mg/5 mL 10 mg (0.5 mL) PO Q1H PRN 09/03/24 Rx (20 mg/mL) oral solution Discomfort #30 mL ondansetron 4 mg disintegrating 4 mg sublingual Q4H PRN nausea and 09/03/24 Rx tablet vomiting #10 tabs ondansetron HCl (PF) 4 mg/2 mL 4 mg (2 mL) IV Q4H PRN nausea and 09/03/24 Rx injection solution vomiting #20 mL Past Med/Surg History Problem List Delirium due to another medical condition Elevated troponin I level (Acute) Acute alteration in mental status (Acute) Hospice care patient (Acute) Palliative care by specialist Advanced care planning/counseling discussion Weakness generalized (Acute) Cancer related pain (Acute) Headache Blurred vision Adenocarcinoma of lower lobe of right lung (Chronic 05/02/23) Right lower lobe pulmonary nodule (Acute) Malignant neoplasm of lung (Acute) Biopsy on 04/10/23 History of bronchoscopy 04/10/23 Medical History Thyroid cancer Migraines Lumbar stenosis Hypothyroidism Hyperlipidemia Arthritis Scoliosis Iron deficiency anemia GERD (gastroesophageal reflux disease) Blindness of right eye CVA (cerebral vascular accident) Anxiety Depression Degenerative disc disease, lumbar Chronic low back pain Breast cancer, right Chronic kidney disease Vitreous degeneration Glaucoma Central corneal ulcer Surgical History 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 Mother No problems noted. Brother No problems noted. Brother No problems noted. Brother No problems noted. Sister No problems noted. Son No problems noted. Grandfather (Maternal) Colorectal cancer Grandmother (Paternal) Colorectal cancer tumor in stomache Social History Smoking Status: Current every day smoker Tobacco Type: Cigarettes Cigarettes Per Day: 1 pack per day, patient reports she is working on cessation; Second Hand Exposure: Yes; Do You Dip or Chew Tobacco: No; Hx Alcohol Use: No Hx Substance Use: No Preferred Language: Yoruba Communication Ability: Unable Visual Impairment: Limited Hearing Ability: Normal Machine I Engraver Required: No Beliefs That Will Affect Care: Spiritual Current Living Situation: Alone How many Children do You have: 1 Feels Safe at Home: Yes Childhood Exposure to Second-Hand Smoke: No Diet: regular during the past year weight has: decreased > 10 lbs Assistive Devices: Oxygen - Continuous and Walker Review of Systems Review of Systems: Unobtainable due to patient's condition Physical Exam Physical Exam: Constitutional: Lethargic/somnolent, minimally responsive, curled up in position, frail, cachectic HEENT: Mucous membranes dry Lungs: Decreased breath sounds CV: S1-S2, regular Abdomen: Soft, nontender, nondistended Extremities: No significant edema Neuro: Minimal responsiveness, lethargic Psych: Flat affect Results & Data Results & Data Diagnostic Findings Patient on comfort care, no diagnostics performed Code Status & VTE Plan VTE Prophylaxis Plan VTE Prophylaxis will be ordered: No Reason for no VTE drug order: Treatment not indicated
[2024-09-03] MEDS: MoRPHine SULFATE 2 MG/ML CARP IV PRN (14:45)
[2024-09-03 15:06] VITALS: O2SAT 94
[2024-09-03] MEDS: LORazepam 2 MG/1 ML VIAL IV PRN (17:04)
[2024-09-04] MEDS ORDERED: MoRPHine BOLUS from BAG IV PRN (11:20)
[2024-09-04] MEDS ORDERED: STAT IV Infusion **Titration per Protocol STA (11:20)
[2024-09-04] MEDS: MoRPHine SULF 100 MG/100 ML BAG IV SCH (12:15)
[2024-09-04] MEDS: ACETAMINOPHEN 650 MG SUPP PR PRN (15:05)
[2024-09-04 15:08] VITALS: RESP 38
[2024-09-04 16:38] VITALS: TEMP 100.4
--- NOTE | 2024-09-04 17:23 | Hospitalist Progress Note ---
Date of Service September 04, 2024 Assessment & Plan (1) Hospice care patient: (2) Adenocarcinoma of lower lobe of right lung: (3) Cancer related pain: (4) Delirium due to another medical condition: Plan Patient with known adenocarcinoma of the lung in the hospital for [facility] care. Patient is in the process of dying. Patient appears uncomfortable with her breathing at the current medical regimen. Transition to morphine drip, titrate to maintain respiratory rate less than 22 and patient comfortable. Communication with nurse Communication with hospice nurse Evaluated patient at bedside later in the afternoon. Breathing is somewhat improved but still tachypneic and using accessory muscles, additional family members are at the bedside. Increased morphine drip rate Again reviewed with nurse to use boluses of morphine as ordered, she should notify the provider if she needs to give a bolus every 30 minutes for 90 minutes to get an increase in the basal rate. Discussion with hospice nurse apparently patient was taking a fair amount of narcotics at home prior to admission this was not fully detailed on her admitting med list. Patient may tolerate a fair amount of IV morphine. Continue to use Ativan for comfort as well, increased frequency. Reviewed plan of care with bedside nurse. Reviewed plans for increasing comfort meds with family at bedside. 56 minutes spent in total reviewing records, communication with care team members, reviewing record, communication with family at bedside and evaluation patient at bedside. Admission and Anticipated Discharge Date Admission Date: September 03, 2024 Subjective Patient seen early this morning. Bqmbut-po-orr at bedside. Patient obvious respiratory distress. Physical Exam Physical Exam: Constitutional: Unresponsive, cachectic HEENT: Mucous membranes dry Lungs: Coarse breath sounds throughout, tachypnea, using accessory muscles CV: S1-S2, regular, tachycardic Abdomen: Soft, nontender, nondistended Extremities: No significant edema Neuro: Unresponsive Results & Data Results & Data Vital Signs (Past 12 Hours) Vital Signs Temp Resp O2 Del Method O2 Flow Rate 09/04/24 16:35 38 C H 09/04/24 15:00 39.1 C H 38 H Nasal Cannula 2 09/04/24 07:05 Nasal Cannula 2
[2024-09-04] MEDS: LORazepam 2 MG/1 ML VIAL IV PRN (17:32)
--- NOTE | 2024-09-05 07:09 | Discharge Summary ---
Discharge Summary Date of Service September 05, 2024 Principal Dx & Hospital Course #1 = Principal Diagnosis (1) due to metastatic cancer: (2) Hospice care patient: (3) Adenocarcinoma of lower lobe of right lung: (4) Cancer related pain: (5) Delirium due to another medical condition: Plan Patient was admitted to the hospital under GIP service. The patient's condition had deteriorated to the point that she was no longer able to care for herself and was no longer able to even respond. Her symptoms were unable to be controlled at home and therefore was GIP status. Patient was initially started on as needed morphine and Ativan. However her respiratory status deteriorated point where she was started on a morphine drip. Morphine drip was titrated to comfort. Hospice was involved in managing her comfort care. Family was at the bedside surrounding the patient during her final moments. Patient passed in peace on 09/05/2024 at 0100 hrs. Notes For Next Care Provider Medication Changes From Visit Not applicable Admission HPI Per Admitting Provider Patient 63-year-old female who is known adenocarcinoma of the lung has been on hospice at home for the past couple months. Mental status rapidly deteriorated to the point where she was no longer be cared for at home. She initially presented to the emergency room and was admitted for ongoing comfort care. She was evaluated by her hospice provider and was deemed appropriate for GIP admission. She was transition to [facility] comfort care today. Patient is minimally to unresponsive at time of my evaluation. Lhaduo-gj-hez is at the bedside and confirms inability to care for her at home and keep her comfortable at home. Admission Exam Per Admitting Provider See H&P Discharge Exam Patient pronounced per nursing protocol Updated Medication List Medication Instructions Recorded Confirmed Type acetaminophen 325 mg tablet 650 mg (2 x 325 mg) PO Q4H PRN 09/03/24 Rx fever or pain #20 tabs atropine 1 % eye drops 4 drp sublingual Q1H PRN 09/03/24 Rx secretions #2 mL hyoscyamine sulfate 0.125 mg 0.125 mg sublingual Q4H PRN 09/03/24 Rx tablet (Levsin) dyspepsia #10 tabs lorazepam 1 mg tablet 1 mg sublingual Q4H PRN agitation 09/03/24 Rx #10 tabs lorazepam 2 mg/mL injection 0.5 mg (0.25 mL) IV Q4H PRN 09/03/24 Rx solution agitation #25 mL morphine 2 mg/mL intravenous 2 mg IV Q1H PRN Discomfort #10 mL 09/03/24 Rx syringe morphine concentrate 100 mg/5 mL 10 mg (0.5 mL) PO Q1H PRN 09/03/24 Rx (20 mg/mL) oral solution Discomfort #30 mL ondansetron 4 mg disintegrating 4 mg sublingual Q4H PRN nausea and 09/03/24 Rx tablet vomiting #10 tabs ondansetron HCl (PF) 4 mg/2 mL 4 mg (2 mL) IV Q4H PRN nausea and 09/03/24 Rx injection solution vomiting #20 mL Total Time Total Time Spent Total Time Spent (In Minutes): 15
== END 2024-09-05 01:57 | disposition expired | DRG 951 ==
LOC: 3E 13:56